=== PATIENT | male | born 1945 | race Caucasian/White ===

== ENCOUNTER 2022-12-29 18:32 | Emergency (ER) | payer MEDICARE, SELFPAY ==
[2022-12-29] VITALS (21 sets, daily range): BP systolic 106–141; BP diastolic 54–65; PULSE 61–75; RESP 16–20; TEMP 36.1–36.4; O2SAT 95–100; BMI 20.7
--- NOTE | 2022-12-29 18:51 | ED.GENADULT ---
HPI - General Adult General Time Seen by Provider: 18:51 Date Seen: 12/29/22 Chief complaint: Weakness Stated complaint: Weakness Time Seen by Provider: 12/29/22 18:39 Source: patient, family and RN notes reviewed Mode of arrival: ambulatory Limitations: no limitations History of Present Illness HPI narrative: Patient is a 77-year-old male presenting to the ED of his own accord with concern of symptoms of dizziness/lightheadedness, weakness feeling of rubbery legs. It is more prominent when he attempts to stand. He states he has had some mild headaches but does not have one now. He states he has had some nausea but does not have it now. There has been no vomiting recently, maybe had an episode when he 1st came home from the hospital. He had 2 right carotid artery stents placed at [facility] on December 06. He notes when he 1st came home from the hospital he had all of these symptoms, the seemed to resolve after a few days but now our back. He does not have focal weakness in his legs, it is more sense of his legs will just feel rubbery. He started noticing symptoms again on his way home from work. Denies any visual change, no chest pain, no shortness of breath. No abdominal pain. No urinary symptoms. No noted fevers or chills. He has a pacemaker, he states it has been there for a long time, thinks maybe summer about 4-5 years. It is also a defibrillator. This is not a spinning sensation. They bring when he came home he had a rash all over his body, his states she almost notice some areas that were like blood blisters. She tells me that they think that this was maybe from the glue that he reacted to. This was after discharge from December 06 hospitalization per report. No current rash now. He does not note any blood in his stool, no dark tarry stools. Related Data Home Medications Medication Instructions Recorded Confirmed alendronate 70 mg tablet 70 mg PO 12/29/22 amlodipine 5 mg tablet 5 mg PO DAILY 12/29/22 12/29/22 atorvastatin 80 mg tablet 80 mg PO DAILY 12/29/22 12/29/22 azithromycin 250 mg tablet 250 mg PO DIRECTED 12/29/22 12/29/22 benzonatate 100 mg capsule 100 mg PO 3XD 12/29/22 12/29/22 clopidogrel 75 mg tablet 75 mg PO DAILY 12/29/22 12/29/22 levothyroxine 112 mcg tablet 112 mcg PO DAILY 12/29/22 12/29/22 levothyroxine 88 mcg tablet 88 mcg PO DAILY 12/29/22 12/29/22 rivaroxaban 20 mg tablet (Xarelto) 20 mg PO DAILY 12/29/22 12/29/22 Allergies Allergy/AdvReac Type Severity Reaction Status Date / Time No Known Drug Allergies Allergy Verified 12/29/22 18:49 Review of Systems Status of ROS: Reports: 10 or more systems reviewed and unremarkable except as noted in History and below Exam Const: Vital Signs, click to edit/add: Vital Signs - 24 hr 12/29/22 18:42 12/29/22 19:11 12/29/22 19:11 Temperature 96.9 F L 97.1 F L Pulse Rate Pulse Rate [Pulse Oximeter] 64 66 Respiratory Rate 16 18 Blood Pressure Blood Pressure [Ri ght Upper Arm] 141/62 H 107/54 L Pulse Oximetry 97 98 99 Oxygen Delivery Me thod Room Air Room Air 12/29/22 18:55 12/29/22 19:00 12/29/22 19:12 Temperature Pulse Rate 64 65 61 Pulse Rate [Pulse Oximeter] Respiratory Rate Blood Pressure 106/54 L Blood Pressure [Ri ght Upper Arm] Pulse Oximetry 97 99 99 Oxygen Delivery Me thod 12/29/22 19:20 12/29/22 19:23 12/29/22 19:25 Temperature Pulse Rate 68 63 75 Pulse Rate [Pulse Oximeter] Respiratory Rate Blood Pressure 107/54 L 107/64 Blood Pressure [Ri ght Upper Arm] Pulse Oximetry 99 98 100 Oxygen Delivery Me thod 12/29/22 19:40 12/29/22 19:45 12/29/22 20:06 Temperature 97.5 F L Pulse Rate 65 62 65 Pulse Rate [Pulse Oximeter] Respiratory Rate 20 Blood Pressure 115/58 L 119/63 Blood Pressure [Ri ght Upper Arm] Pulse Oximetry 99 100 100 Oxygen Delivery Me thod 12/29/22 20:21 Temperature 97.6 F Pulse Rate 62 Pulse Rate [Pulse Oximeter] Respiratory Rate 18 Blood Pressure 111/58 L Blood Pressure [Ri ght Upper Arm] Pulse Oximetry 99 Oxygen Delivery Me thod Documenting provider has reviewed patient's vital signs: yes Common normals: no apparent distress, average body habitus, oriented x3, no limitations, alert and well nourished General appearance: cooperative, comfortable, well kempt, well developed and frail appearing Other: Lying on the bed, holding an emesis bag but states he is not nauseated at the current time. HENMT: Common normals: normocephalic, head/scalp atraumatic, hearing grossly normal bilaterally, external ears normal, external nose normal, nasal mucous membranes and turbinates normal, moist oral mucous membranes, oropharynx normal, dentition normal and gingiva normal Head and scalp: normocephalic and atraumatic Nose: external nose normal and nasal mucous membranes and turbinates normal External ear: external ears normal Eye: Common normals: PERRL, EOMs intact bilaterally, conjunctivae normal and no scleral icterus Conjunctiva: conjunctiva(e) normal Pupil: PERRL Neuro: Common normals: oriented x3 Sensorium/orientation: alert Psych: Appearance: well kempt Course Course Hospital Course: This patient has symptoms that seem to be potentiated by standing, do wonder about orthostatic hypotension. He has no focal neurologic changes on my exam. Infectious etiology are potential. 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 He describes generalize weakness at times. Difficult to say exactly with the etiology could be here but does include infectious and metabolic issues potential respiratory or cardiac. Will do full complement of labs. He will be on cardiac monitoring and pulse oximetry. Will have staff do orthostatic blood pressure and pulse readings. Reevaluation(s) Reevaluation #1: Reviewed with patient that his hemoglobin is quite low at 6. Nursing staff was starting to do his orthostatic vitals and he just sitting up had a BP of 107/54 (last lying BP was 141/62). Will attempt to talk to [facility], don't feel that he is a candidate to stay here with question of his anti-platelet and NOAC, will likely need neurology and cardiology to weigh his risk/benefit ratio with new documented hemoglobin of 6. Will also likely need GI with scopes, do not have emergent coverage for this. Have lab doing type and screen for preparation of transfusion while we await consultation. Will give IV protonix. Time: 19:28 Consultations Consultation #1: Have spoken with both Dr. Mancini the primer expeditor and drier as well as the hospitalist Dr. Smith. Both agree on need for transfer. Did review with the hospitalist that I was going started unit of O-negative blood as we could do this expeditiously here. Type specific blood would not likely be given in the time frame prior to transfer. He did agree with this. Patient is also noted to be on aspirin which is not on his med rec but was found out talking to these gentleman. Thus he is on triple therapy. He does not appear to have active bleeding anywhere at this time but he will continue to be monitored, will update the hospitalist if there is any change or concerns with his status. Vital Signs Vital signs: Initial Vital Signs Temperature 96.9 F L 12/29/22 18:42 Temperature Source Temporal Artery Scan 12/29/22 18:42 Pulse Rate 64 12/29/22 18:42 Pulse Rhythm Regular 12/29/22 18:42 Respiratory Rate 16 12/29/22 18:42 Blood Pressure 141/62 H 12/29/22 18:42 Blood Pressure Mean 88 12/29/22 18:42 Blood Pressure Position Supine 12/29/22 18:42 Pulse Oximetry 97 12/29/22 18:42 Oxygen Delivery Method Room Air 12/29/22 18:42 Vital Signs Temperature 96.9 F L 12/29/22 18:42 Pulse Rate 64 12/29/22 18:42 Respiratory Rate 16 12/29/22 18:42 Blood Pressure 141/62 H 12/29/22 18:42 Pulse Oximetry 97 12/29/22 18:42 Oxygen Delivery Method Room Air 12/29/22 18:42 Temperature 97.6 F 12/29/22 20:21 Pulse Rate 65 12/29/22 20:41 Respiratory Rate 18 12/29/22 20:21 Blood Pressure 123/64 12/29/22 20:41 Pulse Oximetry 99 12/29/22 20:41 Oxygen Delivery Method Room Air 12/29/22 19:11 Medical Decision Making Lab Data Lab results reviewed: Yes I reviewed the patient's lab results Labs: Lab Results 12/29/22 12/29/22 12/29/22 Range/Units 18:45 18:45 18:45 WBC 10.37 (4.50-11.00) K/uL RBC 1.99 L (4.30-5.90) m/uL Hgb 6.0 L* (13.5-17.5) gm/dL Hct 18.8 L (37.0-53.0) % MCV 95 (80-100) fL MCH 30 (26-34) pg MCHC 32 (32-36) gm/dL RDW Coeff of Hannah 18.7 H (11.5-15.5) % Plt Count 280 (140-440) K/uL Neut % (Auto) 70.3 (42.0-72.0) % Lymph % (Auto) 19.9 L (20-44) % [place] % (Auto) 7.1 (0.0-11.0) % Eos % (Auto) 2.0 (0.0-7.0) % Baso % (Auto) 0.2 (0.0-3.0) % Neut # (Auto) 7.29 H (1.7-7.0) K/uL Lymph # (Auto) 2.10 (0.90-2.90) K/uL [place] # (Auto) 0.70 (0.00-0.90) K/UL Eos # (Auto) 0.21 (0.00-0.50) K/uL Baso # (Auto) 0.02 (0.00-0.30) K/uL Diff Slide Review Acceptable Review (Acceptable) ESR 8 (2-15) mm/hr Sodium Cancelled 134 L Potassium Cancelled 4.2 Chloride Cancelled Carbon Dioxide BUN Creatinine Estimated Creat Clear Estimated GFR Glucose Lactate (0.5-1.9) mmol/L Calcium Magnesium (1.5-2.6) mg/dL Total Bilirubin AST ALT Alkaline Phosphatase Troponin I (0.01-0.04) ng/mL C-Reactive Protein NT-Pro-B Natriuret Pep pg/mL Total Protein Albumin SARS-CoV-2 (PCR) (Negative) Influenza Type A (PCR) (Negative) Influenza Type B (PCR) (Negative) RSV (PCR) (Negative) Blood Type Antibody Screen Crossmatch (AHG) 12/29/22 12/29/22 12/29/22 Range/Units 18:45 18:45 18:45 WBC (4.50-11.00) K/uL RBC (4.30-5.90) m/uL Hgb (13.5-17.5) gm/dL Hct (37.0-53.0) % MCV (80-100) fL MCH (26-34) pg MCHC (32-36) gm/dL RDW Coeff of Hannah (11.5-15.5) % Plt Count (140-440) K/uL Neut % (Auto) (42.0-72.0) % Lymph % (Auto) (20-44) % [place] % (Auto) (0.0-11.0) % Eos % (Auto) (0.0-7.0) % Baso % (Auto) (0.0-3.0) % Neut # (Auto) (1.7-7.0) K/uL Lymph # (Auto) (0.90-2.90) K/uL [place] # (Auto) (0.00-0.90) K/UL Eos # (Auto) (0.00-0.50) K/uL Baso # (Auto) (0.00-0.30) K/uL Diff Slide Review (Acceptable) ESR (2-15) mm/hr Sodium Potassium Chloride 105 Carbon Dioxide Cancelled 25 BUN Cancelled 30 Creatinine Cancelled Estimated Creat Clear Estimated GFR Glucose Lactate (0.5-1.9) mmol/L Calcium Magnesium (1.5-2.6) mg/dL Total Bilirubin AST ALT Alkaline Phosphatase Troponin I (0.01-0.04) ng/mL C-Reactive Protein NT-Pro-B Natriuret Pep pg/mL Total Protein Albumin SARS-CoV-2 (PCR) (Negative) Influenza Type A (PCR) (Negative) Influenza Type B (PCR) (Negative) RSV (PCR) (Negative) Blood Type Antibody Screen Crossmatch (AHG) 12/29/22 12/29/22 12/29/22 Range/Units 18:45 18:45 18:45 WBC (4.50-11.00) K/uL RBC (4.30-5.90) m/uL Hgb (13.5-17.5) gm/dL Hct (37.0-53.0) % MCV (80-100) fL MCH (26-34) pg MCHC (32-36) gm/dL RDW Coeff of Hannah (11.5-15.5) % Plt Count (140-440) K/uL Neut % (Auto) (42.0-72.0) % Lymph % (Auto) (20-44) % [place] % (Auto) (0.0-11.0) % Eos % (Auto) (0.0-7.0) % Baso % (Auto) (0.0-3.0) % Neut # (Auto) (1.7-7.0) K/uL Lymph # (Auto) (0.90-2.90) K/uL [place] # (Auto) (0.00-0.90) K/UL Eos # (Auto) (0.00-0.50) K/uL Baso # (Auto) (0.00-0.30) K/uL Diff Slide Review (Acceptable) ESR (2-15) mm/hr Sodium Potassium Chloride Carbon Dioxide BUN Creatinine 0.9 Estimated Creat Clear Cancelled 58.06 Estimated GFR Cancelled 89 Glucose Cancelled Lactate (0.5-1.9) mmol/L Calcium Magnesium (1.5-2.6) mg/dL Total Bilirubin AST ALT Alkaline Phosphatase Troponin I (0.01-0.04) ng/mL C-Reactive Protein NT-Pro-B Natriuret Pep pg/mL Total Protein Albumin SARS-CoV-2 (PCR) (Negative) Influenza Type A (PCR) (Negative) Influenza Type B (PCR) (Negative) RSV (PCR) (Negative) Blood Type Antibody Screen Crossmatch (AHG) 12/29/22 12/29/22 12/29/22 Range/Units 18:45 18:45 18:45 WBC (4.50-11.00) K/uL RBC (4.30-5.90) m/uL Hgb (13.5-17.5) gm/dL Hct (37.0-53.0) % MCV (80-100) fL MCH (26-34) pg MCHC (32-36) gm/dL RDW Coeff of Hannah (11.5-15.5) % Plt Count (140-440) K/uL Neut % (Auto) (42.0-72.0) % Lymph % (Auto) (20-44) % [place] % (Auto) (0.0-11.0) % Eos % (Auto) (0.0-7.0) % Baso % (Auto) (0.0-3.0) % Neut # (Auto) (1.7-7.0) K/uL Lymph # (Auto) (0.90-2.90) K/uL [place] # (Auto) (0.00-0.90) K/UL Eos # (Auto) (0.00-0.50) K/uL Baso # (Auto) (0.00-0.30) K/uL Diff Slide Review (Acceptable) ESR (2-15) mm/hr Sodium Potassium Chloride Carbon Dioxide BUN Creatinine Estimated Creat Clear Estimated GFR Glucose 110 Lactate 1.1 (0.5-1.9) mmol/L Calcium Cancelled 7.9 L Magnesium 1.7 (1.5-2.6) mg/dL Total Bilirubin Cancelled 0.2 AST Cancelled ALT Alkaline Phosphatase Troponin I (0.01-0.04) ng/mL C-Reactive Protein NT-Pro-B Natriuret Pep pg/mL Total Protein Albumin SARS-CoV-2 (PCR) (Negative) Influenza Type A (PCR) (Negative) Influenza Type B (PCR) (Negative) RSV (PCR) (Negative) Blood Type Antibody Screen Crossmatch (AHG) 12/29/22 12/29/22 12/29/22 Range/Units 18:45 18:45 18:45 WBC (4.50-11.00) K/uL RBC (4.30-5.90) m/uL Hgb (13.5-17.5) gm/dL Hct (37.0-53.0) % MCV (80-100) fL MCH (26-34) pg MCHC (32-36) gm/dL RDW Coeff of Hannah (11.5-15.5) % Plt Count (140-440) K/uL Neut % (Auto) (42.0-72.0) % Lymph % (Auto) (20-44) % [place] % (Auto) (0.0-11.0) % Eos % (Auto) (0.0-7.0) % Baso % (Auto) (0.0-3.0) % Neut # (Auto) (1.7-7.0) K/uL Lymph # (Auto) (0.90-2.90) K/uL [place] # (Auto) (0.00-0.90) K/UL Eos # (Auto) (0.00-0.50) K/uL Baso # (Auto) (0.00-0.30) K/uL Diff Slide Review (Acceptable) ESR (2-15) mm/hr Sodium Potassium Chloride Carbon Dioxide BUN Creatinine Estimated Creat Clear Estimated GFR Glucose Lactate (0.5-1.9) mmol/L Calcium Magnesium (1.5-2.6) mg/dL Total Bilirubin AST 26 ALT Cancelled 21 Alkaline Phosphatase Cancelled 48 Troponin I 0.09 H* (0.01-0.04) ng/mL C-Reactive Protein Cancelled NT-Pro-B Natriuret Pep pg/mL Total Protein Albumin SARS-CoV-2 (PCR) (Negative) Influenza Type A (PCR) (Negative) Influenza Type B (PCR) (Negative) RSV (PCR) (Negative) Blood Type Antibody Screen Crossmatch (AHG) 12/29/22 12/29/22 12/29/22 Range/Units 18:45 18:45 18:45 WBC (4.50-11.00) K/uL RBC (4.30-5.90) m/uL Hgb (13.5-17.5) gm/dL Hct (37.0-53.0) % MCV (80-100) fL MCH (26-34) pg MCHC (32-36) gm/dL RDW Coeff of Hannah (11.5-15.5) % Plt Count (140-440) K/uL Neut % (Auto) (42.0-72.0) % Lymph % (Auto) (20-44) % [place] % (Auto) (0.0-11.0) % Eos % (Auto) (0.0-7.0) % Baso % (Auto) (0.0-3.0) % Neut # (Auto) (1.7-7.0) K/uL Lymph # (Auto) (0.90-2.90) K/uL [place] # (Auto) (0.00-0.90) K/UL Eos # (Auto) (0.00-0.50) K/uL Baso # (Auto) (0.00-0.30) K/uL Diff Slide Review (Acceptable) ESR (2-15) mm/hr Sodium Potassium Chloride Carbon Dioxide BUN Creatinine Estimated Creat Clear Estimated GFR Glucose Lactate (0.5-1.9) mmol/L Calcium Magnesium (1.5-2.6) mg/dL Total Bilirubin AST ALT Alkaline Phosphatase Troponin I (0.01-0.04) ng/mL C-Reactive Protein 0.5 NT-Pro-B Natriuret Pep 983 pg/mL Total Protein Cancelled 5.9 L Albumin Cancelled 3.4 SARS-CoV-2 (PCR) (Negative) Influenza Type A (PCR) (Negative) Influenza Type B (PCR) (Negative) RSV (PCR) (Negative) Blood Type Antibody Screen Crossmatch (AHG) 12/29/22 12/29/22 Range/Units 19:08 19:30 WBC (4.50-11.00) K/uL RBC (4.30-5.90) m/uL Hgb (13.5-17.5) gm/dL Hct (37.0-53.0) % MCV (80-100) fL MCH (26-34) pg MCHC (32-36) gm/dL RDW Coeff of Hannah (11.5-15.5) % Plt Count (140-440) K/uL Neut % (Auto) (42.0-72.0) % Lymph % (Auto) (20-44) % [place] % (Auto) (0.0-11.0) % Eos % (Auto) (0.0-7.0) % Baso % (Auto) (0.0-3.0) % Neut # (Auto) (1.7-7.0) K/uL Lymph # (Auto) (0.90-2.90) K/uL [place] # (Auto) (0.00-0.90) K/UL Eos # (Auto) (0.00-0.50) K/uL Baso # (Auto) (0.00-0.30) K/uL Diff Slide Review (Acceptable) ESR (2-15) mm/hr Sodium Potassium Chloride Carbon Dioxide BUN Creatinine Estimated Creat Clear Estimated GFR Glucose Lactate (0.5-1.9) mmol/L Calcium Magnesium (1.5-2.6) mg/dL Total Bilirubin AST ALT Alkaline Phosphatase Troponin I (0.01-0.04) ng/mL C-Reactive Protein NT-Pro-B Natriuret Pep pg/mL Total Protein Albumin SARS-CoV-2 (PCR) Negative SARS-CoV-2 (Negative) Influenza Type A (PCR) Negative PCR FLU A (Negative) Influenza Type B (PCR) Negative PCR FLU B (Negative) RSV (PCR) Negative PCR RSV (Negative) Blood Type A Positive Antibody Screen NEGATIVE Crossmatch (AHG) See Detail Imaging Data Chest x-ray: Attestation: I have reviewed the pertinent imaging results. Radiologist's impression: Patient: LIGIA MAY Facility:?[facility] Patient ID:?[id number] Site Patient ID:?[id number]. Site :?[id number] Study:?XRay Chest portable 1v-12/29/2022 7:22:36 PM Ordering Physician:Consuelo Hanson Final Report: INDICATION: Weakness TECHNIQUE: Single view chest. FINDINGS: The lungs are clear. The heart, mediastinum and pulmonary vessels are of normal size. There is no evidence of pleural disease. Median sternotomy. Left cardiac pacer. IMPRESSION: Negative chest. Dictated by Nancy Tinajero MD @ 12/29/2022 7:31:57 PM (Electronic Signature) ECG Data Attestation: I personally reviewed and interpreted this ECG as follows: (Sinus rhythm, 69 beats per minute strain pattern that appears to be similar to prior EKG in 2016. EKG machine is calling [id number] but I honestly do not see the EKG evidence of this. Patient has a known pacemaker but do not see pacer spikes.) Prior ECG tracings: available for review (Two thousand sixteen, was in atrial fibrillation with RVR and had similar complexes.) Critical Care Time Critical Care Time Critical Care Time: Yes Attestation: The patient required my highest level preparedness to intervene emergently and I personally spent this critical care time directly and personally managing the patient. This critical care time included: Obtaining a history; Examining the patient; Pulse oximetry; Ordering and reviewing of studies; Arranging urgent treatment with development of a management plan; Evaluation of patients response to treatment; Frequent reassessment discussions with other providers. This critical care time was performed to assess and manage the high probability of imminent life-threatening deterioration that could result in multiorgan failure. It was exclusive of separate billable procedures and treating other patients and teaching time. Total Critical Care Time in Minutes: 40 Discharge Plan Discharge Clinical Impression: Dizziness, Chronic anticoagulation, Elevated troponin, Weakness, Acute blood loss anemia Patient Disposition: Xfer [facility] Discharge Location: [facility] Condition: Unchanged Prescriptions: No Action atorvastatin 80 mg tablet 80 mg PO DAILY azithromycin 250 mg tablet 250 mg PO DIRECTED alendronate 70 mg tablet 70 mg PO clopidogrel 75 mg tablet 75 mg PO DAILY amlodipine 5 mg tablet 5 mg PO DAILY levothyroxine 88 mcg tablet 88 mcg PO DAILY benzonatate 100 mg capsule 100 mg PO 3XD levothyroxine 112 mcg tablet 112 mcg PO DAILY Xarelto 20 mg tablet 20 mg PO DAILY Stand Alone Forms: [employer] Info Instructions
--- NOTE | 2022-12-29 18:58 | CRLHL7_ITS ---
For Patients: As a result of the Century Cures Act, medical imaging exams and procedure reports are released immediately into your electronic medical record. You may view this report before your referring provider. If you have questions, please contact your health care provider. INDICATION: Weakness TECHNIQUE: Single view chest. FINDINGS: The lungs are clear. The heart, mediastinum and pulmonary vessels are of normal size. There is no evidence of pleural disease. Median sternotomy. Left cardiac pacer. IMPRESSION: Negative chest. Dictated by Nancy Tinajero MD @ 12/29/2022 7:31:57 PM (Electronically Signed)
[2022-12-29 19:11] LABS: Lactate* 1.1 mmol/L (0.5-1.9)
[2022-12-29 19:15] LABS: Basophils Absolute Auto 0.02 K/uL (0.00-0.30); Basophils Percent Auto 0.2 % (0.0-3.0); Eosinophils Absolute Auto 0.21 K/uL (0.00-0.50); Hematocrit 18.8 % (37.0-53.0); Immature Granulocytes Abs Auto 0.05 K/uL (0.00-0.30); Immature Granulocytes Pct Auto 0.5 %; Lymphocytes Percent Auto 19.9 % (20-44); Mean Corpuscular HGB Conc 32 gm/dL (32-36); Mean Corpuscular Hemoglobin 30 pg (26-34); Mean Corpuscular Volume 95 fL (80-100); Monocytes Percent Auto 7.1 % (0.0-11.0); Neutrophils Absolute Auto 7.29 K/uL (1.7-7.0); Neutrophils Percent Auto 70.3 % (42.0-72.0); Platelet Count* 280 K/uL (140-440); RDW Coefficient of Variation % 18.7 % (11.5-15.5); Red Blood Count 1.99 m/uL (4.30-5.90); White Blood Count* 10.37 K/uL (4.50-11.00)
[2022-12-29 19:17] LABS: Slide Review Reflex Yes
[2022-12-29 19:26] LABS: Albumin* 3.4 g/dL (3.3-5.0); Chloride* 105 mmol/L (96-114); Potassium* 4.2 mmol/L (3.6-5.1); Sodium* 134 mmol/L (135-149)
[2022-12-29 19:29] LABS: Alanine Aminotransferase* 21 U/L (4-50); Alkaline Phosphatase* 48 U/L (40-150); Aspartate Amino Transferase* 26 U/L (12-35); Bilirubin Total* 0.2 mg/dL (0.1-1.5); Blood Urea Nitrogen* 30 mg/dL (7-30); Carbon Dioxide* 25 mmol/L (20-32); Creatinine* 0.9 mg/dL (0.5-1.5); Est. Creatinine Clearance* 58.06; Estimated Glomerular Filt Rate 89 ml/min; Glucose* 110 mg/dL (60-115); Slide Review Acceptable Review (Acceptable); Total Protein* 5.9 g/dL (6.0-8.3)
[2022-12-29 19:30] LABS: Calcium* 7.9 mg/dL (8.4-10.6); Magnesium* 1.7 mg/dL (1.5-2.6)
[2022-12-29 19:32] LABS: C Reactive Protein* 0.5 mg/dL (0.5-1.0)
[2022-12-29] MEDS: 0.9 % SODIUM CHLORIDE 1000 ml 1,000 ML 500 ML IV (19:33)
[2022-12-29 19:45] LABS: NT Pro B Type NatriureticPept* 983 pg/mL; Troponin I* 0.09 ng/mL (0.01-0.04)
[2022-12-29 19:52] LABS: PCR FLU A Negative PCR FLU A (Negative); PCR FLU B Negative PCR FLU B (Negative); PCR RSV Negative PCR RSV (Negative)
[2022-12-29 19:58] LABS: SARS PCR* Negative SARS-CoV-2 (Negative)
[2022-12-29 20:01] LABS: Erythrocyte SedimentationRate* 8 mm/hr (2-15)
--- NOTE | 2022-12-29 21:08 | PC.NURSE ---
report given to Akila VIERA at [facility], patient to go to room E4000 room 4062. patient left via EMS blood infusing.
--- NOTE | 2022-12-29 21:09 | PC.NURSE ---
blood finished en route with EMS
[2023-01-29 13:49] LABS: Troponin, Point-of-Care* 0.09 ng/ml (0.01-0.04)
== END 2022-12-29 21:11 | disposition short-term general hospital (02) ==
PROVIDERS: Emergency Provider Family Medicine; PCP Family Medicine
DX: R53.1 Weakness (principal); D62 Acute posthemorrhagic anemia; Z79.01 Long term (current) use of anticoagulants; R42 Dizziness and giddiness
CPT/HCPCS: 36415; 71045; 80053; 81001; 83605; 83735; 83880; 84484; 85025; 85651; 86140; 86850; 86900; 86901; 86922; 87631; 93005; 94761; 99285; 99291; J7030; P9016

== ENCOUNTER 2022-12-29 20:56 | Outpatient (CLI) | payer MEDICARE, SELFPAY | END 2022-12-29 20:57 | disposition home or self-care (01) | LOC: AMB 01-01 11:21 | PROVIDERS: PCP Family Medicine; Visit Provider Family Medicine | DX: R42 Dizziness and giddiness (principal) | CPT/HCPCS: A0425; A0426; A0427 ==

== ENCOUNTER 2023-05-20 15:28 | Observation (INO) | payer MEDICARE, SELFPAY ==
[2023-05-20] VITALS (30 sets, daily range): BP systolic 95–155; BP diastolic 65–77; PULSE 54–67; RESP 16–18; TEMP 36.3–36.8; O2SAT 94–99; BMI 21.5
--- NOTE | 2023-05-20 16:24 | ED.GENADULT ---
HPI - General Adult General Chief complaint: GI Bleed Stated complaint: Blood in stool Time Seen by Provider: 05/20/23 16:23 History of Present Illness HPI narrative: c/o blood in stool for over a week. happens everytime he has bm. last bm today. denies diarrhea . denies pain. c/o occas lightheaded. pt here 3-4 months ago with the same thing . at that time sent to [facility] , states bleeding in intestines. suppose to have another colonoscopy soon. 77 year old man presenting to the ER with complaint of rectal bleeding. More specifically dark stools over the last 3 days maybe actually a week when he thinks about it. He has been little more lightheaded especially when he goes to stand up. He says he did want a wait as long as last time. Underlying history of significant cardiovascular disease with a history of a number of cardiac stents and history of pacer defibrillator placement. He continues to take aspirin, clopidogrel and rivaroxaban. He is not feeling short of breath. No chest pain. January 28 he was seen in this department with hematochezia with a hemoglobin of 6 and sent to [email or web address] where colonoscopy apparently revealed what looks like an AVM where 2 hemoclips were placed. This was actively bleeding/oozing at that time. Was recommended per my report view to follow-up in 6 months for colonoscopy with polypectomy. He does take a beta-florecita. Is not having abdominal pain. Related Data Home Medications Medication Instructions Recorded Confirmed alendronate 70 mg tablet 70 mg PO Q7D 12/29/22 05/21/23 levothyroxine 112 mcg tablet 112 mcg PO DAILY 12/29/22 05/21/23 rivaroxaban 20 mg tablet (Xarelto) 20 mg PO QPM 12/29/22 05/21/23 aspirin 81 mg tablet,delayed 81 mg PO DAILY 05/20/23 05/20/23 release (Adult Aspirin Regimen) carvedilol 25 mg tablet 25 mg PO BID 05/20/23 05/20/23 rosuvastatin 40 mg tablet 40 mg PO DAILY 05/20/23 05/20/23 acetaminophen 325 mg tablet 650 mg PO TID PRN 05/21/23 05/21/23 cholecalciferol (vitamin D3) 25 50 mcg PO DAILY 05/21/23 05/21/23 mcg (1,000 unit) tablet diphenhydramine HCl 25 mg tablet 25 mg PO QHS PRN 05/21/23 05/21/23 (Allergy Medicine) loratadine 10 mg tablet 10 mg PO DAILY PRN 05/21/23 05/21/23 (Allerclear) Allergies Allergy/AdvReac Type Severity Reaction Status Date / Time No Known Drug Allergies Allergy Verified 12/29/22 18:49 Review of Systems Status of ROS: Reports: 6 or more systems reviewed and unremarkable except as noted in History and below [facility] Medical History (Updated 05/21/23 @ 15:20 by Carol Ann Nichols MD) Chronic anticoagulation ?Z79.01 - terminal gauger supervisor (current) use of anticoagulants (ICD-10) ICD (implantable cardioverter-defibrillator) in place ?Z95.810 - Presence of automatic (implantable) cardiac defibrillator (ICD-10) History of right common carotid artery stent placement ?Z98.890 - Other specified postprocedural states (ICD-10) ?Z95.828 - Presence of other vascular implants and grafts (ICD-10) COVID-19 ?U07.1 - COVID-19 (ICD-10) Chronic cough ?R05.3 - Chronic cough (ICD-10) Osteoporosis ?M81.0 - Age-related osteoporosis without current pathological fracture (ICD-10) NSTEMI (non-ST elevation myocardial infarction) ?I21.4 - Non-ST elevation (NSTEMI) myocardial infarction (ICD-10) Carotid atherosclerosis ?I65.29 - Occlusion and stenosis of unspecified carotid artery (ICD-10) Myocardial infarction of anterior wall ?I21.09 - ST elevation (STEMI) myocardial infarction involving other coronary artery of anterior wall (ICD-10) Chronic HFrEF (heart failure with reduced ejection fraction) ?I50.22 - Chronic systolic (congestive) heart failure (ICD-10) Primary hypothyroidism ?E03.9 - Hypothyroidism, unspecified (ICD-10) Spinal stenosis, lumbar ?M48.061 - Spinal stenosis, lumbar region without neurogenic claudication (ICD-10) Essential hypertension ?I10 - Essential (primary) hypertension (ICD-10) PVD (peripheral vascular disease) ?I73.9 - Peripheral vascular disease, unspecified (ICD-10) Paroxysmal atrial fibrillation ?I48.0 - Paroxysmal atrial fibrillation (ICD-10) Mixed hyperlipidemia ?E78.2 - Mixed hyperlipidemia (ICD-10) Coronary artery disease ?I25.10 - Atherosclerotic heart disease of king [place] coronary artery without angina pectoris (ICD-10) History of anemia ?Z86.2 - Personal history of diseases of the blood and blood-forming organs and certain disorders involving the immune mechanism (ICD-10) AVM (arteriovenous malformation) of colon with hemorrhage ?K55.21 - Angiodysplasia of colon with hemorrhage (ICD-10) History of gastrointestinal hemorrhage ?Z87.19 - Personal history of other diseases of the digestive system (ICD-10) Alcohol use disorder ?F10.90 - Alcohol use, unspecified, uncomplicated (ICD-10) Tobacco dependence with current use ?F17.200 - Nicotine dependence, unspecified, uncomplicated (ICD-10) Surgical History (Updated 05/20/23 @ 20:33 by Pérez Huerta MD) H/O varicose vein stripping ?Z98.890 - Other specified postprocedural states (ICD-10) Status post lumbar laminectomy ?Z98.890 - Other specified postprocedural states (ICD-10) H/O hernia repair ?Z98.890 - Other specified postprocedural states (ICD-10) ?Z87.19 - Personal history of other diseases of the digestive system (ICD-10) History of coronary artery stent placement ?Z95.5 - Presence of coronary angioplasty implant and graft (ICD-10) S/P CABG x 3 ?Z95.1 - Presence of aortocoronary bypass graft (ICD-10) Family History (Updated 05/20/23 @ 21:20 by Pérez Huerta MD) Brother Heart disease Social History (Updated 05/20/23 @ 21:19 by Pérez Huerta MD) Narrative: . Lives with . Still working in industrial manufacturing. Continues to smoke 1 pack cigarettes daily, with greater than 50 pack-year history of smoking. Drinks minimum of 2 alcoholic beverages in the evening on a daily basis. Denies alcohol withdrawal. 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 Requests full resuscitation in the event of cardiopulmonary demise. Primary care physician is Dr. Cross. What is your current living situation?: I presently have a place to live Problems where you live: no known problems Problems where you live details: None In the past 12 months, utilities in danger of being shut off: no In the past 12 mos, have been you worried that your food would run out before you had money to buy more?: never true In the past 12 mos, the food you bought just didn't last and you didn't have money to buy more?: never true Highest level of school completed/degree received: Associate degree: occupational, technical, vocational program Smoking Status: Unknown if ever smoked How often do you have a drink containing alcohol: 4 or more times a week Alcohol type: beer How many standard drinks containing alcohol do you have on a typical day: 3 or 4 How often do you have six or more drinks on one occasion: Less than monthly AUDIT-C Alcohol total score: 6 Non-prescribed substance use: denies use Caffeine: No How often does anyone, including family, friends and others, physically hurt you: never How often does anyone, including family, friends and others, insult or talk down to you: never How often does anyone, including family, friends and others, threaten you with harm: never How often does anyone, including family, friends and others, scream or curse at you: never Exam Narrative: Exam Narrative: Very. NAD. Skin is warm and dry. Quite alert interactive. Extremities are without edema. Abdomen is soft and nontender with normoactive bowel sounds. He has large surgical midline abdominal scar. Lungs are clear. Heart is in a regular rate and rhythm. He will however throw intermittent irregular beats which look to be consistent with PVCs when I am watching on monitor. Const: Vital Signs, click to edit/add: Vital Signs - 24 hr 05/20/23 15:39 05/20/23 16:13 05/20/23 16:14 Temperature 97.3 F L Pulse Rate 59 L 54 L Pulse Rate [Pulse Oximeter] 67 Pulse Rate [orthos tatic lying] Pulse Rate [orthos tatic sitting] Pulse Rate [orthos tatic standing] Respiratory Rate 18 Blood Pressure 127/70 Blood Pressure [Ri ght Upper Arm] 144/74 H Blood Pressure [or thostatic lying] Blood Pressure [or thostatic sitting] Blood Pressure [or thostatic standing ] Pulse Oximetry 99 96 96 Oxygen Delivery Me thod Room Air 05/20/23 16:15 05/20/23 16:30 05/20/23 16:33 Temperature Pulse Rate 61 66 63 Pulse Rate [Pulse Oximeter] Pulse Rate [orthos tatic lying] Pulse Rate [orthos tatic sitting] Pulse Rate [orthos tatic standing] Respiratory Rate Blood Pressure 150/77 H Blood Pressure [Ri ght Upper Arm] Blood Pressure [or thostatic lying] Blood Pressure [or thostatic sitting] Blood Pressure [or thostatic standing ] Pulse Oximetry 96 95 97 Oxygen Delivery Ms thod 05/20/23 16:45 05/20/23 17:00 05/20/23 17:02 Temperature Pulse Rate 62 59 L 59 L Pulse Rate [Pulse Oximeter] Pulse Rate [orthos tatic lying] Pulse Rate [orthos tatic sitting] Pulse Rate [orthos tatic standing] Respiratory Rate Blood Pressure 132/73 Blood Pressure [Ri ght Upper Arm] Blood Pressure [or thostatic lying] Blood Pressure [or thostatic sitting] Blood Pressure [or thostatic standing ] Pulse Oximetry 95 98 95 Oxygen Delivery Ms thod 05/20/23 17:03 05/20/23 17:15 05/20/23 17:30 Temperature Pulse Rate 59 L 61 61 Pulse Rate [Pulse Oximeter] Pulse Rate [orthos tatic lying] Pulse Rate [orthos tatic sitting] Pulse Rate [orthos tatic standing] Respiratory Rate Blood Pressure Blood Pressure [Ri ght Upper Arm] Blood Pressure [or thostatic lying] Blood Pressure [or thostatic sitting] Blood Pressure [or thostatic standing ] Pulse Oximetry 95 95 96 Oxygen Delivery Ms thod 05/20/23 17:32 05/20/23 17:33 05/20/23 17:35 Temperature Pulse Rate 63 61 62 Pulse Rate [Pulse Oximeter] Pulse Rate [orthos tatic lying] Pulse Rate [orthos tatic sitting] Pulse Rate [orthos tatic standing] Respiratory Rate Blood Pressure 139/77 118/74 95/65 Blood Pressure [Ri ght Upper Arm] Blood Pressure [or thostatic lying] Blood Pressure [or thostatic sitting] Blood Pressure [or thostatic standing ] Pulse Oximetry 96 97 96 Oxygen Delivery Ms thod 05/20/23 17:36 05/20/23 17:37 05/20/23 17:45 Temperature Pulse Rate 62 62 Pulse Rate [Pulse Oximeter] Pulse Rate [orthos tatic lying] 59 L Pulse Rate [orthos tatic sitting] 62 Pulse Rate [orthos tatic standing] 60 Respiratory Rate Blood Pressure Blood Pressure [Ri ght Upper Arm] Blood Pressure [or thostatic lying] 139/77 Blood Pressure [or thostatic sitting] 118/74 Blood Pressure [or thostatic standing ] 95/65 Pulse Oximetry 97 96 Oxygen Delivery Me thod 05/20/23 18:00 05/20/23 18:02 05/20/23 18:15 Temperature Pulse Rate 64 59 L 63 Pulse Rate [Pulse Oximeter] Pulse Rate [orthos tatic lying] Pulse Rate [orthos tatic sitting] Pulse Rate [orthos tatic standing] Respiratory Rate Blood Pressure 128/73 Blood Pressure [Ri ght Upper Arm] Blood Pressure [or thostatic lying] Blood Pressure [or thostatic sitting] Blood Pressure [or thostatic standing ] Pulse Oximetry 97 94 96 Oxygen Delivery Me thod 05/20/23 18:30 05/20/23 18:31 05/20/23 18:45 Temperature Pulse Rate 60 54 L 57 L Pulse Rate [Pulse Oximeter] Pulse Rate [orthos tatic lying] Pulse Rate [orthos tatic sitting] Pulse Rate [orthos tatic standing] Respiratory Rate Blood Pressure 134/76 Blood Pressure [Ri ght Upper Arm] Blood Pressure [or thostatic lying] Blood Pressure [or thostatic sitting] Blood Pressure [or thostatic standing ] Pulse Oximetry 97 96 95 Oxygen Delivery Ms thod 05/20/23 19:04 Temperature Pulse Rate 61 Pulse Rate [Pulse Oximeter] Pulse Rate [orthos tatic lying] Pulse Rate [orthos tatic sitting] Pulse Rate [orthos tatic standing] Respiratory Rate Blood Pressure Blood Pressure [Ri ght Upper Arm] Blood Pressure [or thostatic lying] Blood Pressure [or thostatic sitting] Blood Pressure [or thostatic standing ] Pulse Oximetry 98 Oxygen Delivery Me thod Documenting provider has reviewed patient's vital signs: yes Course Vital Signs Vital signs: Initial Vital Signs Temperature 97.3 F L 05/20/23 15:39 Temperature Source Temporal Artery Scan 05/20/23 15:39 Pulse Rate 67 05/20/23 15:39 Respiratory Rate 18 05/20/23 15:39 Blood Pressure 144/74 H 05/20/23 15:39 Blood Pressure Mean 97 05/20/23 15:39 Blood Pressure Position Sitting 05/20/23 15:39 Pulse Oximetry 99 05/20/23 15:39 Oxygen Delivery Method Room Air 05/20/23 15:39 Vital Signs Temperature 97.3 F L 05/20/23 15:39 Pulse Rate 67 05/20/23 15:39 Respiratory Rate 18 05/20/23 15:39 Blood Pressure 144/74 H 05/20/23 15:39 Pulse Oximetry 99 05/20/23 15:39 Oxygen Delivery Method Room Air 05/20/23 15:39 Temperature 97.6 F 05/21/23 13:30 Pulse Rate 49 L 05/21/23 13:30 Respiratory Rate 14 05/21/23 13:30 Blood Pressure 150/83 H 05/21/23 13:30 Pulse Oximetry 97 05/21/23 13:30 Oxygen Delivery Method Room Air 05/21/23 13:30 Medical Decision Making MDM Narrative Medical decision making narrative: Placed on athletic monitor. Will be rechecking labs. Given the symptomatic at least orthostaticly will check these and give a bolus of fluids. Seems to be describing GI bleed with description of melanotic stools. Initial hemoglobin is 9.2 with hematocrit 27. Per my review of record on 01/29/2023 hemoglobin is 12.6 With this hemoglobin drop will need another colonoscopy. I have not done a stool Hemoccult. Considering anticoagulation and cardiovascular status, did discuss potential cares here with our general surgeon. Encouraged toward care at a tertiary facility if possible. Did call to [facility] as well as other facilities. There are either no beds, on divert status or no timely accommodations to be found. Did discuss with our hospitalist who is thankfully accepting for admission. Lab Data Lab results reviewed: Yes I reviewed the patient's lab results Labs: Lab Results 05/20/23 Range/Units 16:35 WBC 6.72 (4.50-11.00) K/uL RBC 3.27 L (4.30-5.90) m/uL Hgb 9.2 L (13.5-17.5) gm/dL Hct 27.3 L (37.0-53.0) % MCV 84 (80-100) fL MCH 28 (26-34) pg MCHC 34 (32-36) gm/dL RDW Coeff of Hannah 18.2 H (11.5-15.5) % Plt Count 233 (140-440) K/uL Neut % (Auto) 60.3 (42.0-72.0) % Lymph % (Auto) 28.7 (20-44) % Long % (Auto) 7.7 (0.0-11.0) % Eos % (Auto) 2.2 (0.0-7.0) % Baso % (Auto) 0.4 (0.0-3.0) % Neut # (Auto) 4.04 (1.7-7.0) K/uL Lymph # (Auto) 1.93 (0.90-2.90) K/uL Long # (Auto) 0.50 (0.00-0.90) K/UL Eos # (Auto) 0.15 (0.00-0.50) K/uL Baso # (Auto) 0.03 (0.00-0.30) K/uL Abs Immat Gran (auto) 0.05 (0.00-0.30) K/uL Imm/Tot Granulo (auto) 0.7 % Sodium 136 (135-149) mmol/L Potassium 4.2 (3.6-5.1) mmol/L Chloride 104 (96-114) mmol/L Carbon Dioxide 25 (20-32) mmol/L Anion Gap 7 (7-15) mEq/L BUN 36 H (7-30) mg/dL Creatinine 0.8 (0.5-1.5) mg/dL Estimated Creat Clear 60.48 Estimated GFR 92 ml/min Glucose 102 (60-115) mg/dL Calcium 9.2 (8.4-10.6) mg/dL Blood Type A Positive Antibody Screen NEGATIVE Crossmatch (AHG) See Detail ECG Data Attestation: I personally reviewed and interpreted this ECG as follows: (Right bundle-branch block. Rate of 62. PVC) Discharge Plan Discharge Clinical Impression: GI bleed, Orthostatic hypotension Patient Disposition: Admitted As Observation
[2023-05-20 16:48] LABS: Basophils Absolute Auto 0.03 K/uL (0.00-0.30); Basophils Percent Auto 0.4 % (0.0-3.0); Eosinophils Absolute Auto 0.15 K/uL (0.00-0.50); Eosinophils Percent Auto 2.2 % (0.0-7.0); Hematocrit 27.3 % (37.0-53.0); Hemoglobin* 9.2 gm/dL (13.5-17.5); Immature Granulocytes Abs Auto 0.05 K/uL (0.00-0.30); Immature Granulocytes Pct Auto 0.7 %; Lymphocytes Absolute Auto 1.93 K/uL (0.90-2.90); Lymphocytes Percent Auto 28.7 % (20-44); Mean Corpuscular HGB Conc 34 gm/dL (32-36); Mean Corpuscular Hemoglobin 28 pg (26-34); Mean Corpuscular Volume 84 fL (80-100); Monocytes Percent Auto 7.7 % (0.0-11.0); Neutrophils Absolute Auto 4.04 K/uL (1.7-7.0); Neutrophils Percent Auto 60.3 % (42.0-72.0); Platelet Count* 233 K/uL (140-440); RDW Coefficient of Variation % 18.2 % (11.5-15.5); Red Blood Count 3.27 m/uL (4.30-5.90); White Blood Count* 6.72 K/uL (4.50-11.00)
[2023-05-20 16:49] LABS: Chloride* 104 mmol/L (96-114); Potassium* 4.2 mmol/L (3.6-5.1); Sodium* 136 mmol/L (135-149)
[2023-05-20 16:51] LABS: Creatinine* 0.8 mg/dL (0.5-1.5); Est. Creatinine Clearance* 60.48; Estimated Glomerular Filt Rate 92 ml/min
[2023-05-20 16:52] LABS: Anion Gap 7 mEq/L (7-15); Blood Urea Nitrogen* 36 mg/dL (7-30); Calcium* 9.2 mg/dL (8.4-10.6); Carbon Dioxide* 25 mmol/L (20-32); Glucose* 102 mg/dL (60-115)
[2023-05-20 17:03] LABS: Slide Review Reflex No
--- OUTSIDE RECORDS SUMMARY | 2023-05-20 17:06 | XMS_ITS | Continuity of Care Document ---
Author Name Unknown Organization [facility] Address [address] [address] [place] [address] Phone Care Team Providers Care Professional Services Consultant Name Role Phone Yoav Damon MD Unavailable Unavailable Procedures Procedure Date Colonoscopy Flex; W/contrl Ble 23 Subsqt Hosp-da E&m Minr Compl 3 Subsqt Hosp-da E&m Minr Compl 3 Init Hosp-da E&m Mod Severity 3 Ugi Endo; Dx W/wo Collec Specm 23 Advance Directives Directive Yes / No Effective Date File Name No Information Encounters Encounter Description Practice Location Reason(s) For Visit Diagnoses Date Provider Providers Copied on Encounter [facility], [address] [address], [place], [place], [address], tel:[phone] [facility] No Information 3 Marisol Cason. [facility] [address], [id number] , [place]. tel:[phone] Referring Provider: Devan Méndez, [address], [place], [address]. tel:[phone] Subsqt Hosp-da E&m Minr Compl [facility], [address] [address], [place], [place], [address], tel:[phone] [facility] No Information 3 Italo Conway. [facility] [address], [id number] , [place]. tel:[phone] Referring Provider: Zoraida Silva, [facility] [address] [place], [address] . tel:[phone] [facility], [address] [address], [place], [place], [address], [place] tel:[phone] [facility] Diverticular hemorrhage Dec- 3 Marisol Cason. [address] [facility], [facility], [place], [place], [id number] , [place]. [phone] Init Hosp-da E&m Mod Severity [facility], [address] [address], [place], [place], [address], [place] tel:[phone] [facility] No Information Dec- 3 Keira العلي. [facility] [address] [address], [place], [place], [id number] , [place]. tel:[phone] Referring Provider: Devan Méndez, [address] [place] [address], [place], [address]. tel:[phone] Family History Family Member Type Diagnosis Age At Onset No Information Payers Payer name Insurance type Covered libertarian ID Authoriza tion(s) [facility] AARP Medic are Complete CI [id number] Social History Type Description Quantity Date Captured Comments Sex Male Smoking Status No Information Chief Complaint And Reason For Visit No Information Reason For Referral Reason For Referral No Information Plan Of Treatment Date Type Action Status Referral Ordered: Colonoscopy Appointment date/timeframe: 02/11/2023 ordered History Of Present Illness Encounter Date Complaint History Of Prese nt Illness No Information Functional Status Date Functional Assessmen t No Information Instructions Date Instruction Additional Infor mation No Information Assessments Type Assessment Date No Information Patient Care Teams Name Effective Dates (start - stop) Status Members No Information
--- OUTSIDE RECORDS SUMMARY | 2023-05-20 17:06 | XMS_ITS | Continuity of Care Document ---
Author Name Unknown Organization [facility] Address [address] [place] [address] Phone Care Team Providers Care Supervisor Wheel Shop Name Role Phone Macho Jack MD Unavailable Unavailable Procedures Procedure Date Office/Outpatient Visit,[facility], [facility] 2020 Advance Directives Directive Yes / No Effective Date File Name No Information Encounters Encounter Description Practice Location Reason(s) For Visit Diagnoses Date Provider Providers Copied on Encounter [facility], [address], [place], [place], [id number], [place] tel:[phone] [facility] No Information 1 Marcie Pritchard. [facility] [place], [address], [address], [place], [place], [id number] , [place]. tel:[phone] Office/Outpat ient Visit,[facility], [facility], [address], [place], [place], [address], [place] tel:[phone] [facility] No Information 1 Marcie Pritchard. [facility] [place], [address], [address], [place], [place], [id number] , [place]. tel:[phone] Referring Provider: Devan Méndez, [facility], [place], [address]. tel:[phone] Family History Family Member Type Diagnosis Age At Onset No Information Payers Payer name Insurance type Covered green party ID Authorfreddiea cuco(s) [employer] [facility] CI [id number] Social History Type Description Quantity Date Captured Comments Sex Male Smoking Status No Information Chief Complaint And Reason For Visit No Information Reason For Referral Reason For Referral No Information History Of Present Illness Encounter Date Complaint History Of Prese nt Illness No Information Functional Status Date Functional Assessmen t No Information Instructions Date Instruction Additional Infor mation No Information Assessments Type Assessment Date No Information Patient Care Teams Name Effective Dates (start - stop) Status Members No Information
--- OUTSIDE RECORDS SUMMARY | 2023-05-20 17:06 | XMS_ITS | Continuity of Care Document ---
Author Name Unknown Organization [facility] Address [address] [place] [address] Phone Care Team Providers Care Cnc Specialist Name Role Phone Macho Jack MD Unavailable Unavailable Procedures Procedure Date Office/Outpatient Visit,[facility], [facility] 2020 Advance Directives Directive Yes / No Effective Date File Name No Information Encounters Encounter Description Practice Location Reason(s) For Visit Diagnoses Date Provider Providers Copied on Encounter [facility], [address], [place], [place], [id number], [place] tel:[phone] [facility] No Information 1 Marcie Pritchard. [facility] [place], [address], [address], [place], [place], [id number] , [place]. tel:[phone] Office/Outpat ient Visit,[facility], [facility], [address], [place], [place], [id number], [place] tel:[phone] [facility] No Information 1 Marcie Pritchard. [facility] [place], [address], [address], [place], [place], [address] , [place]. tel:[phone] Referring Provider: Devan Méndez, [employer], [place], [address]. tel:[phone] Family History Family Member Type Diagnosis Age At Onset No Information Payers Payer name Insurance type Covered constitution party ID Authorfreddiea cuco(s) [employer] [facility] CI [id number] Social History Type Description Quantity Date [...]
--- OUTSIDE RECORDS SUMMARY | 2023-05-20 17:06 | XMS_ITS | Continuity of Care Document ---
Author Name Unknown Organization [facility] Address [address] [address] [place] [address] Phone Care Team Providers Care Linesperson Name Role Phone Yoav Damon MD Unavailable [...] Diagnoses Date Provider Providers Copied on Encounter [facility], [address] [address], [place], [place], [address], tel:[phone] [facility] No Information 3 Marisol Cason. [facility] [address], [id number] , [place]. tel:[phone] Referring Provider: Devan Méndez, [address], [place], [address]. tel:[phone] Subsqt Hosp-da E&m Minr Compl [facility], [address] [address], [place], [place], [address], tel:[phone] [facility] No Information 3 Italo Conway. [facility] [address], [id number] , [place]. tel:[phone] Referring Provider: Zoraida Silva, [facility] [address] [place], [address] . tel:[phone] [facility], [address] [address], [place], [place], [address], [place] tel:[phone] [facility] Diverticular hemorrhage Dec- 3 Marisol Cason. [address] [facility], [facility] [address], [place], [place], [address] , [place]. [phone] Init Hosp-da E&m Mod Severity [facility], [address] [address], [place], [place], [address], [place] tel:[phone] [facility] No Information Dec- 3 Keira العلي. [facility] [address] [address], [place], [place], [address] , [place]. tel:[phone] Referring Provider: Devan Méndez, [address] [place] [address], [place], [address]. tel:[phone] Family History Family Member Type Diagnosis Age At Onset No Information Payers Payer name Insurance type Covered democrat ID Authoriza tion(s) [facility] AARP Medic are Complete CI [id number] Social History Type Description Quantity Date Captured [...]
--- NOTE | 2023-05-20 19:11 | ED.NURSE ---
Pt brought to the restroom and back in wheelchair. Pt able to stand and transfer to the wheelchair with standby assist.
[2023-05-20] MEDS: 0.9 % SODIUM CHLORIDE 1000 ml 1,000 ML IV (19:36)
[2023-05-20 19:37] LABS: Hemoglobin* 9.1 gm/dL (13.5-17.5)
[2023-05-20] MEDS: 0.9 % SODIUM CHLORIDE 1000 ml 1,000 ML 75 ML IV (20:48)
[2023-05-20] MEDS: PANTOPRAZOLE SODIUM 40 MG INJ IVP (20:48)
--- NOTE | 2023-05-20 21:09 | PM.IMHP1 ---
Hospitalist- H&P: HPI History of Present Illness Time Seen by Provider: 19:00 Date Seen: 05/20/23 Chief complaint: melena, anemia, hypovolemic shock Narrative: Jan Walsh is a 77 year old man who presents with 7 days of melena and increasing number of episodes of orthostasis. 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 That bleeding resolved. Esophagogastroduodenoscopies at that same time was reportedly negative for acute findings. Hemoglobin at that time was as low as 6.0 mg/dL. Did receive packed red blood cell transfusions at that time. At time of discharge his hemoglobin was 7.5. By end of January 2023 is hemoglobin was 12. Review of Systems Status of ROS: Reports: 10 or more systems reviewed and unremarkable except as noted in History and below Narrative: Denies chest heaviness, pressure, tightness, or pain. Has chronic cough. Denies dyspnea at rest, paroxysmal nocturnal dyspnea, orthopnea. Has baseline level of dyspnea with exertion. Denies syncope. Has had several near syncopal episodes in the last 2 days, consistent with orthostasis. Does not ordinarily have this. Denies nausea or vomiting. Acknowledges decreased interest in eating. Denies epigastric pain, dyspepsia, dysphagia, odynophagia. Denies abdominal pain. Denies diarrhea or constipation. Denies dysuria, urgency, frequency, hematuria. Denies focal motor neurologic changes. Denies fevers, rigors, diaphoresis. No recent trauma, injury, travel. No shira bright red blood loss of any sort. Denies palpitations or chest fluttering. Denies myalgias or arthralgias. Continues to smoke 1 pack of cigarettes daily. Has 50 pack-year history of smoking. Continues to drink at least 2 alcoholic beverages did daily, usually in the evening. Sometimes has more. Denies alcohol withdrawal symptoms. Denies use of any other street or recreational drugs. . Lives with his . He still works in a manufacturing plant constructing various industrial items. Enjoys his work. Dr. Cross is his primary care physician. Requests full resuscitation in the event of cardiopulmonary demise. Designates his as his power of workers compensation defense attorney for health should that be required. [facility] Medical History (Updated 05/20/23 @ 21:36 by Pérez Huerta MD) Chronic anticoagulation ?Z79.01 - grind operator (current) use of anticoagulants (ICD-10) ICD (implantable cardioverter-defibrillator) in place ?Z95.810 - Presence of automatic (implantable) cardiac defibrillator (ICD-10) History of right common carotid artery stent placement ?Z98.890 - Other specified postprocedural states (ICD-10) ?Z95.828 - Presence of other vascular implants and grafts (ICD-10) COVID-19 ?U07.1 - COVID-19 (ICD-10) Chronic cough ?R05.3 - Chronic cough (ICD-10) Osteoporosis ?M81.0 - Age-related osteoporosis without current pathological fracture (ICD-10) NSTEMI (non-ST elevation myocardial infarction) ?I21.4 - Non-ST elevation (NSTEMI) myocardial infarction (ICD-10) Carotid atherosclerosis ?I65.29 - Occlusion and stenosis of unspecified carotid artery (ICD-10) Myocardial infarction of anterior wall ?I21.09 - ST elevation (STEMI) myocardial infarction involving other coronary artery of anterior wall (ICD-10) Chronic HFrEF (heart failure with reduced ejection fraction) ?I50.22 - Chronic systolic (congestive) heart failure (ICD-10) Primary hypothyroidism ?E03.9 - Hypothyroidism, unspecified (ICD-10) Spinal stenosis, lumbar ?M48.061 - Spinal stenosis, lumbar region without neurogenic claudication (ICD-10) Essential hypertension ?I10 - Essential (primary) hypertension (ICD-10) PVD (peripheral vascular disease) ?I73.9 - Peripheral vascular disease, unspecified (ICD-10) Paroxysmal atrial fibrillation ?I48.0 - Paroxysmal atrial fibrillation (ICD-10) Mixed hyperlipidemia ?E78.2 - Mixed hyperlipidemia (ICD-10) Coronary artery disease ?I25.10 - Atherosclerotic heart disease of [place] coronary artery without angina pectoris (ICD-10) History of anemia ?Z86.2 - Personal history of diseases of the blood and blood-forming organs and certain disorders involving the immune mechanism (ICD-10) AVM (arteriovenous malformation) of colon with hemorrhage ?K55.21 - Angiodysplasia of colon with hemorrhage (ICD-10) History of gastrointestinal hemorrhage ?Z87.19 - Personal history of other diseases of the digestive system (ICD-10) Alcohol use disorder ?F10.90 - Alcohol use, unspecified, uncomplicated (ICD-10) Tobacco dependence with current use ?F17.200 - Nicotine dependence, unspecified, uncomplicated (ICD-10) Surgical History (Updated 05/20/23 @ 20:33 by Pérez Huerta MD) H/O varicose vein stripping ?Z98.890 - Other specified postprocedural states (ICD-10) Status post lumbar laminectomy ?Z98.890 - Other specified postprocedural states (ICD-10) H/O hernia repair ?Z98.890 - Other specified postprocedural states (ICD-10) ?Z87.19 - Personal history of other diseases of the digestive system (ICD-10) History of coronary artery stent placement ?Z95.5 - Presence of coronary angioplasty implant and graft (ICD-10) S/P CABG x 3 ?Z95.1 - Presence of aortocoronary bypass graft (ICD-10) Family History (Updated 05/20/23 @ 21:20 by Pérez Huerta MD) Brother Heart disease Social History (Updated 05/20/23 @ 21:19 by Pérez Huerta MD) Narrative: . Lives with . Still working in industrial manufacturing. Continues to smoke 1 pack cigarettes daily, with greater than 50 pack-year history of smoking. Drinks minimum of 2 alcoholic beverages in the evening on a daily basis. Denies alcohol withdrawal. Designates as power of workers compensation defense attorney for health should that be required. Requests full resuscitation in the event of cardiopulmonary demise. Primary care physician is Dr. Cross. Smoking Status: Unknown if ever smoked Meds Home Medications and Allergies Home Medications Medication Instructions Recorded Confirmed Type alendronate 70 mg tablet 70 mg PO 12/29/22 History amlodipine 5 mg tablet 5 mg PO DAILY 12/29/22 12/29/22 History atorvastatin 80 mg tablet 80 mg PO DAILY 12/29/22 12/29/22 History azithromycin 250 mg tablet 250 mg PO DIRECTED 12/29/22 12/29/22 History benzonatate 100 mg capsule 100 mg PO 3XD 12/29/22 12/29/22 History clopidogrel 75 mg tablet 75 mg PO DAILY 12/29/22 12/29/22 History levothyroxine 112 mcg tablet 112 mcg PO DAILY 12/29/22 12/29/22 History levothyroxine 88 mcg tablet 88 mcg PO DAILY 12/29/22 05/20/23 History rivaroxaban 20 mg tablet (Xarelto) 20 mg PO DAILY 12/29/22 05/20/23 History Vitamin D3 05/20/23 History aspirin 81 mg tablet,delayed 81 mg PO DAILY 05/20/23 05/20/23 History release (Adult Aspirin Regimen) carvedilol 25 mg tablet 25 mg PO BID 05/20/23 05/20/23 History rosuvastatin 40 mg tablet 40 mg PO DAILY 05/20/23 05/20/23 History Home Medication Comments: Has been off of the clopidogrel for a while. In January 2023 his levothyroxine dose was 112 mcg daily. He completed his dose of azithromycin in December 2022. No longer using the benzonatate. Allergies Allergy/AdvReac Type Severity Reaction Status Date / Time No Known Drug Allergies Allergy Verified 12/29/22 18:49 Exam Narrative: Exam Narrative: I 1st examined him in the emergency department. I secondly examine him on the hospital floor. He appears comfortable in no acute distress when laying down. Vision and hearing are grossly normal. Alert and oriented to self, place, time, situation. Friendly, cooperative, articulate. Mood and affect are congruent. No icterus, jaundice, petechiae. No diaphoresis, tremor, asterixis. Appears thin. Pupils equally round and reactive to light and accommodation. Extraocular muscles are intact. Midline nasal septum. Buccal mucosa is moist. Dentition in fair repair. Neck is supple. Midline trachea. No JVD or hepatojugular reflux. Lungs clear to auscultation with some scattered rhonchi but no wheezes or rales. Chest wall excursions are full. No CVA tenderness. Heart tones with regular rhythm with occasional extra beat. Distant tones. No obvious murmur, gallop, or rub. PMI not laterally displaced. Abdomen is thin with active bowel sounds, soft, nontender. Extremities without edema. Extremities are cool. Capillary refill of upper extremities about 3 seconds. Difficult to palpate pulses in bilateral lower extremities, with known peripheral vascular disease. No focal motor neurologic deficits. Independent with transfer and station. Complains of orthostasis if he stands too long. Const: Vital Signs, click to edit/add: Vital Signs - 24 hr 05/20/23 15:39 05/20/23 16:13 05/20/23 16:14 Temperature 97.3 F L Pulse Rate 59 L 54 L Pulse Rate [Pulse Oximeter] 67 Pulse Rate [orthos tatic lying] Pulse Rate [orthos tatic sitting] Pulse Rate [orthos tatic standing] Respiratory Rate 18 Blood Pressure 127/70 Blood Pressure [Ri ght Upper Arm] 144/74 H Blood Pressure [or thostatic lying] Blood Pressure [or thostatic sitting] Blood Pressure [or thostatic standing ] Pulse Oximetry 99 96 96 Oxygen Delivery Me thod Room Air 05/20/23 16:15 05/20/23 16:30 05/20/23 16:33 Temperature Pulse Rate 61 66 63 Pulse Rate [Pulse Oximeter] Pulse Rate [orthos tatic lying] Pulse Rate [orthos tatic sitting] Pulse Rate [orthos tatic standing] Respiratory Rate Blood Pressure 150/77 H Blood Pressure [Ri ght Upper Arm] Blood Pressure [or thostatic lying] Blood Pressure [or thostatic sitting] Blood Pressure [or thostatic standing ] Pulse Oximetry 96 95 97 Oxygen Delivery Me thod 05/20/23 16:45 05/20/23 17:00 05/20/23 17:02 Temperature Pulse Rate 62 59 L 59 L Pulse Rate [Pulse Oximeter] Pulse Rate [orthos tatic lying] Pulse Rate [orthos tatic sitting] Pulse Rate [orthos tatic standing] Respiratory Rate Blood Pressure 132/73 Blood Pressure [Ri ght Upper Arm] Blood Pressure [or thostatic lying] Blood Pressure [or thostatic sitting] Blood Pressure [or thostatic standing ] Pulse Oximetry 95 98 95 Oxygen Delivery Me thod 05/20/23 17:03 05/20/23 17:15 05/20/23 17:30 Temperature Pulse Rate 59 L 61 61 Pulse Rate [Pulse Oximeter] Pulse Rate [orthos tatic lying] Pulse Rate [orthos tatic sitting] Pulse Rate [orthos tatic standing] Respiratory Rate Blood Pressure Blood Pressure [Ri ght Upper Arm] Blood Pressure [or thostatic lying] Blood Pressure [or thostatic sitting] Blood Pressure [or thostatic standing ] Pulse Oximetry 95 95 96 Oxygen Delivery Me thod 05/20/23 17:32 05/20/23 17:33 05/20/23 17:35 Temperature Pulse Rate 63 61 62 Pulse Rate [Pulse Oximeter] Pulse Rate [orthos tatic lying] Pulse Rate [orthos tatic sitting] Pulse Rate [orthos tatic standing] Respiratory Rate Blood Pressure 139/77 118/74 95/65 Blood Pressure [Ri ght Upper Arm] Blood Pressure [or thostatic lying] Blood Pressure [or thostatic sitting] Blood Pressure [or thostatic standing ] Pulse Oximetry 96 97 96 Oxygen Delivery Me thod 05/20/23 17:36 05/20/23 17:37 05/20/23 17:45 Temperature Pulse Rate 62 62 Pulse Rate [Pulse Oximeter] Pulse Rate [orthos tatic lying] 59 L Pulse Rate [orthos tatic sitting] 62 Pulse Rate [orthos tatic standing] 60 Respiratory Rate Blood Pressure Blood Pressure [Ri ght Upper Arm] Blood Pressure [or thostatic lying] 139/77 Blood Pressure [or thostatic sitting] 118/74 Blood Pressure [or thostatic standing ] 95/65 Pulse Oximetry 97 96 Oxygen Delivery Mn thod 05/20/23 18:00 05/20/23 18:02 05/20/23 18:15 Temperature Pulse Rate 64 59 L 63 Pulse Rate [Pulse Oximeter] Pulse Rate [orthos tatic lying] Pulse Rate [orthos tatic sitting] Pulse Rate [orthos tatic standing] Respiratory Rate Blood Pressure 128/73 Blood Pressure [Ri ght Upper Arm] Blood Pressure [or thostatic lying] Blood Pressure [or thostatic sitting] Blood Pressure [or thostatic standing ] Pulse Oximetry 97 94 96 Oxygen Delivery Mn thod 05/20/23 18:30 05/20/23 18:31 05/20/23 18:45 Temperature Pulse Rate 60 54 L 57 L Pulse Rate [Pulse Oximeter] Pulse Rate [orthos tatic lying] Pulse Rate [orthos tatic sitting] Pulse Rate [orthos tatic standing] Respiratory Rate Blood Pressure 134/76 Blood Pressure [Ri ght Upper Arm] Blood Pressure [or thostatic lying] Blood Pressure [or thostatic sitting] Blood Pressure [or thostatic standing ] Pulse Oximetry 97 96 95 Oxygen Delivery Mn thod 05/20/23 19:04 Temperature Pulse Rate 61 Pulse Rate [Pulse Oximeter] Pulse Rate [orthos tatic lying] Pulse Rate [orthos tatic sitting] Pulse Rate [orthos tatic standing] Respiratory Rate Blood Pressure Blood Pressure [Ri ght Upper Arm] Blood Pressure [or thostatic lying] Blood Pressure [or thostatic sitting] Blood Pressure [or thostatic standing ] Pulse Oximetry 98 Oxygen Delivery Me thod Documenting provider has reviewed patient's vital signs: yes Hospitalist - H&P: Result Labs Labs: Short CBC 05/20/23 05/20/23 Range/Units 16:35 19:32 WBC 6.72 (4.50-11.00) K/uL Hgb 9.2 L 9.1 L (13.5-17.5) gm/dL Hct 27.3 L (37.0-53.0) % Plt Count 233 (140-440) K/uL BMP 05/20/23 16:35 Sodium 136 Potassium 4.2 Chloride 104 Carbon Dioxide 25 BUN 36 H Creatinine 0.8 Glucose 102 Calcium 9.2 Assessment and Plan Assessment and plan (1) Gastrointestinal hemorrhage with melena: Status: Acute (2) Orthostatic hypotension: Status: Acute (3) Hypovolemic shock: Problem comment: Mild Status: Acute (4) Anemia due to gastrointestinal blood loss: Status: Acute (5) Alcohol use disorder: Problem comment: 2-3 drinks per night Status: Acute (6) Tobacco dependence with current use: Problem comment: greater than 1 ppd x 50+ years Status: Acute (7) Chronic anticoagulation: Problem comment: Rivaroxaban Status: Acute (8) Paroxysmal atrial fibrillation: Status: Acute (9) Coronary artery disease: Problem comment: CABG x 3 vessels 11/09/2007, VERMA to LAD, SVG to RCA and OM1 Status: Acute (10) PVD (peripheral vascular disease): Problem comment: h/o critical limb ischemia, s/p aobifem bypass 03/20/2012 Status: Acute (11) Carotid atherosclerosis: Problem comment: stent to right on 12/06/2022 Status: Acute Plan 1. Reviewed impression with patient and his . Reiterated to them that a abattoir manager at a tertiary medical facility, [facility], agreed that patient would do well to be transferred there however they have no beds there or elsewhere in the [facility] at this time where they have Gastroenterology support. 2. Recommended admission to [facility], with close monitoring, serial hemoglobins, crystalloid IV fluids, 1 unit packed red blood cell transfusion. 3. Will try to schedule for esophagogastroduodenoscopies tomorrow. 4. Informed patient and that if his condition worsens that we may need to try to transfer him to a tertiary care facility. 5. Continue with other supportive medications for now although will need to reduce the dose of his beta-florecita and hold his dose of amlodipine. 6. Patient and agreeable with above stated plans and recommendations at this time.
[2023-05-21] VITALS (13 sets, daily range): BP systolic 102–164; BP diastolic 64–85; PULSE 49–63; RESP 12–16; TEMP 36.3–36.8; O2SAT 94–97
[2023-05-21 02:07] LABS: Hemoglobin* 9.3 gm/dL (13.5-17.5)
--- NOTE | 2023-05-21 06:32 | PC.NURSE ---
End of shift: A&Ox3, Corinne at bedside throughout the night. No stools this shift. No pain or N/V. SBA w/ IV pole to BR. Normal saline running at 75hr. Received 1 unit of RBC, recheck only brought HGB from 9.1 to 9.3. 2 unit is on hold per Dr Castillo's orders until recheck this AM. Orthostatic BP'a were completed. EGD to be completed this morning NPO since 0200.
[2023-05-21 06:40] LABS: Hematocrit 28.7 % (37.0-53.0); Hemoglobin* 9.6 gm/dL (13.5-17.5); Mean Corpuscular HGB Conc 33 gm/dL (32-36); Mean Corpuscular Hemoglobin 28 pg (26-34); Mean Corpuscular Volume 84 fL (80-100); Platelet Count* 195 K/uL (140-440); White Blood Count* 6.66 K/uL (4.50-11.00)
[2023-05-21 06:42] LABS: Slide Review Reflex No
[2023-05-21] MEDS: LEVOTHYROXINE 112 MCG TABLET PO (08:09)
[2023-05-21] MEDS: PANTOPRAZOLE SODIUM 40 MG INJ IVP (09:05)
[2023-05-21] MEDS: carvediloL 25 MG TABLET 12.5 MG PO (09:05)
[2023-05-21] MEDS: SODIUM CHLORIDE 0.9 % (FLUSH) 10 ML SYRINGE 5 ML IVF (09:06)
--- NOTE | 2023-05-21 09:42 | W.ANESCHARGE ---
Anesthesia Charges Start Date/Time Anesthesia Start Date: 05/21/23 Anesthesia Start Time: 12:00 Stop Date/Time Anesthesia Stop Date: 05/21/23 Anesthesia Stop Time: 12:17 Summary Emergency: MDA Extremes of Age - Over 70 or under 1: MDA
--- NOTE | 2023-05-21 12:27 | W.ANESCHARGE ---
Anesthesia Charges Start Date/Time Anesthesia Start Date: 05/21/23 Anesthesia Start Time: 12:00 Stop Date/Time Anesthesia Stop Date: 05/21/23 Anesthesia Stop Time: 12:17 Summary Emergency: TELEVISION CABLE INSTALLER
[2023-05-21] MEDS: 0.9 % SODIUM CHLORIDE 1000 ml 1,000 ML 75 ML IV (14:47)
--- NOTE | 2023-05-21 15:09 | PM.DST ---
Transfer Discharge Sum: Prov Provider Date Seen: 05/21/23 Date of admission: 05/20/23 19:29 Primary care physician: Devan Cross MD Admitting clinician: Pérez Huerta Consults: Dr. Marleen Green of General Surgery (EGD) Attending physician on discharge: Carol Ann Nichols Anticipated date of transfer: 05/21/23 Receiving physician/facility: [facility] DS: Diagnosis Discharge Diagnosis (1) Gastrointestinal hemorrhage with melena: Status: Acute Problem details: - EGD performed by General Surgery on 05/21, mild duodenitis without evidence of acute bleeding - given patient's h/o LGIB (2/2 AVM) in 12/29 in addition to comorbidities, recommend transfer to tertiary care center for further workup and management - Reviewed with GI and hospitalist at [facility], who agree to accept the patient in transfer - he remains on a clear liquid diet prior to transfer (2) Anemia due to gastrointestinal blood loss: Status: Acute Problem details: - Hgb 9.2 on presentation (last outpatient Hgb 12/6 in 01/28), transfused 1U PRBCs, Hgb 9.6 on 05/21 (3) Alcohol use disorder: Status: Acute Problem details: - 2-3 drinks per night, no evidence of withdrawal (4) Tobacco dependence with current use: Status: Acute Problem details: - greater than 1 ppd x 50+ years (5) Coronary artery disease: Status: Acute Problem details: - CABG x 3 vessels 11/09/2007, VERMA to LAD, SVG to RCA and OM1 (6) PVD (peripheral vascular disease): Status: Acute Problem details: - h/o critical limb ischemia, s/p aobifem bypass 03/20/2012 (7) Paroxysmal atrial fibrillation: Status: Acute Problem details: - anticoagulated on Rivaroxaban and ASA (HOLDING these on 05/20 admission) - rate controlled on Coreg Transfer Discharge Sum: Med Medications Active and Home Medications: Home Medications alendronate 70 mg tablet 70 mg PO Q7D 12/29/22 [History Confirmed 05/21/23] levothyroxine 112 mcg tablet 112 mcg PO DAILY 12/29/22 [History Confirmed 05/21/23] rivaroxaban 20 mg tablet (Xarelto) 20 mg PO QPM 12/29/22 [History Confirmed 05/21/23] aspirin 81 mg tablet,delayed release (Adult Aspirin Regimen) 81 mg PO DAILY 05/20/23 [History Confirmed 05/20/23] carvedilol 25 mg tablet 25 mg PO BID 05/20/23 [History Confirmed 05/20/23] rosuvastatin 40 mg tablet 40 mg PO DAILY 05/20/23 [History Confirmed 05/20/23] acetaminophen 325 mg tablet 650 mg PO TID PRN 05/21/23 [History Confirmed 05/21/23] cholecalciferol (vitamin D3) 25 mcg (1,000 unit) tablet 50 mcg PO DAILY 05/21/23 [History Confirmed 05/21/23] diphenhydramine HCl 25 mg tablet (Allergy Medicine) 25 mg PO QHS PRN 05/21/23 [History Confirmed 05/21/23] loratadine 10 mg tablet (Allerclear) 10 mg PO DAILY PRN 05/21/23 [History Confirmed 05/21/23] Active Medications Acetaminophen (Acetaminophen 325 Mg Tablet) 650 mg PO Q6H PRN Carvedilol (Carvedilol 25 Mg Tablet) 12.5 mg PO BID [facility] Last Admin: 05/21/23 09:05 Dose: 12.5 mg Sodium Chloride (0.9 % Sodium Chloride 1000 Ml) 1,000 mls @ 75 mls/hr IV .[id number] [facility] Last Admin: 05/21/23 14:47 Dose: 75 mls/hr Levothyroxine Sodium (Levothyroxine 112 Mcg Tablet) 112 mcg PO 0730 [facility] Last Admin: 05/21/23 08:09 Dose: 112 mcg Nicotine (Nicotine 21 Mg Patch) 1 patch TRANSDERMA Q24H [facility] Last Admin: 05/20/23 20:48 Dose: Not Given Pantoprazole Sodium (Pantoprazole Sodium 40 Mg Inj) 40 mg IVP DAILY [facility] Last Admin: 05/21/23 09:05 Dose: 40 mg Sodium Chloride (0.9 % Sodium Chloride 250 Ml) 250 ml IV ONCE PRN Sodium Chloride (Sodium Chloride 0.9 % (Flush) 10 Ml Syringe) 5 ml IVF .FLUSH PRN Sodium Chloride (Sodium Chloride 0.9 % (Flush) 10 Ml Syringe) 5 ml IVF BID [facility] Last Admin: 05/21/23 09:06 Dose: 5 ml Transfer Discharge Sum: Hosp Hospital Course Hospital course: Jan Walsh is a 77 year old male who presented to the emergency room on 05/20 for melanotic stools, present for approximately 1 week. He was noted to have a hemoglobin of 9.2 (previous outpatient hemoglobin 12.6, 4 months ago), transfused 1 unit PRBCs. Anticoagulation was held, PPI initiated, transfer attempted but there were no beds available at tertiary care facilities. He was admitted overnight and kept NPO. EGD performed on hospital day 1 by General surgery exhibited duodenitis without evidence of acute bleeding. Patient has a history of lower GI bleed secondary to AVM in December of 2022. Given this history, melena, and significant comorbidities, recommend transfer to tertiary care facility for further management. Patient and in agreement; GI and Hospitalist at [facility] accept Jan in transfer. Time Spent with Patient Time attestation: Total time spent providing and/or coordinating transfer services: Total time spent: Greater than 30 minutes Exam Narrative: Exam Narrative: GEN: Alert and oriented, sitting comfortably in bed and nontoxic HEENT: EOMIs bilaterally, no scleral icterus, mild conjunctival pallor CV: RRR, No concerning murmurs, rubs, or gallops R: LCTA bilaterally without concerning wheezing, air movement adequate Ab: soft and nontender Ext: wwp, no concerning edema Skin: No concerning skin lesions or rashes on exposed skin Neuro: Nonfocal Psych: Appropriate Const: Vital Signs, click to edit/add: Vital Signs - 24 hr 05/20/23 15:39 05/20/23 16:13 05/20/23 16:14 Temperature 97.3 F L Pulse Rate 59 L 54 L Pulse Rate [Pulse Oximeter] 67 Pulse Rate [Right Pulse Oximeter] Pulse Rate [orthos tatic lying] Pulse Rate [orthos tatic sitting] Pulse Rate [orthos tatic standing] Respiratory Rate 18 Blood Pressure 127/70 Blood Pressure [Ri ght Arm] Blood Pressure [Ri ght Upper Arm] 144/74 H Blood Pressure [or thostatic lying] Blood Pressure [or thostatic sitting] Blood Pressure [or thostatic standing ] Pulse Oximetry 99 96 96 Oxygen Delivery Me thod Room Air 05/20/23 16:15 05/20/23 16:30 05/20/23 16:33 Temperature Pulse Rate 61 66 63 Pulse Rate [Pulse Oximeter] Pulse Rate [Right Pulse Oximeter] Pulse Rate [orthos tatic lying] Pulse Rate [orthos tatic sitting] Pulse Rate [orthos tatic standing] Respiratory Rate Blood Pressure 150/77 H Blood Pressure [Ri ght Arm] Blood Pressure [Ri ght Upper Arm] Blood Pressure [or thostatic lying] Blood Pressure [or thostatic sitting] Blood Pressure [or thostatic standing ] Pulse Oximetry 96 95 97 Oxygen Delivery Wv thod 05/20/23 16:45 05/20/23 17:00 05/20/23 17:02 Temperature Pulse Rate 62 59 L 59 L Pulse Rate [Pulse Oximeter] Pulse Rate [Right Pulse Oximeter] Pulse Rate [orthos tatic lying] Pulse Rate [orthos tatic sitting] Pulse Rate [orthos tatic standing] Respiratory Rate Blood Pressure 132/73 Blood Pressure [Ri ght Arm] Blood Pressure [Ri ght Upper Arm] Blood Pressure [or thostatic lying] Blood Pressure [or thostatic sitting] Blood Pressure [or thostatic standing ] Pulse Oximetry 95 98 95 Oxygen Delivery Wv thod 05/20/23 17:03 05/20/23 17:15 05/20/23 17:30 Temperature Pulse Rate 59 L 61 61 Pulse Rate [Pulse Oximeter] Pulse Rate [Right Pulse Oximeter] Pulse Rate [orthos tatic lying] Pulse Rate [orthos tatic sitting] Pulse Rate [orthos tatic standing] Respiratory Rate Blood Pressure Blood Pressure [Ri ght Arm] Blood Pressure [Ri ght Upper Arm] Blood Pressure [or thostatic lying] Blood Pressure [or thostatic sitting] Blood Pressure [or thostatic standing ] Pulse Oximetry 95 95 96 Oxygen Delivery Wv thod 05/20/23 17:32 05/20/23 17:33 05/20/23 17:35 Temperature Pulse Rate 63 61 62 Pulse Rate [Pulse Oximeter] Pulse Rate [Right Pulse Oximeter] Pulse Rate [orthos tatic lying] Pulse Rate [orthos tatic sitting] Pulse Rate [orthos tatic standing] Respiratory Rate Blood Pressure 139/77 118/74 95/65 Blood Pressure [Ri ght Arm] Blood Pressure [Ri ght Upper Arm] Blood Pressure [or thostatic lying] Blood Pressure [or thostatic sitting] Blood Pressure [or thostatic standing ] Pulse Oximetry 96 97 96 Oxygen Delivery Wv thod 05/20/23 17:36 05/20/23 17:37 05/20/23 17:45 Temperature Pulse Rate 62 62 Pulse Rate [Pulse Oximeter] Pulse Rate [Right Pulse Oximeter] Pulse Rate [orthos tatic lying] 59 L Pulse Rate [orthos tatic sitting] 62 Pulse Rate [orthos tatic standing] 60 Respiratory Rate Blood Pressure Blood Pressure [Ri ght Arm] Blood Pressure [Ri ght Upper Arm] Blood Pressure [or thostatic lying] 139/77 Blood Pressure [or thostatic sitting] 118/74 Blood Pressure [or thostatic standing ] 95/65 Pulse Oximetry 97 96 Oxygen Delivery Me thod 05/20/23 18:00 05/20/23 18:02 05/20/23 18:15 Temperature Pulse Rate 64 59 L 63 Pulse Rate [Pulse Oximeter] Pulse Rate [Right Pulse Oximeter] Pulse Rate [orthos tatic lying] Pulse Rate [orthos tatic sitting] Pulse Rate [orthos tatic standing] Respiratory Rate Blood Pressure 128/73 Blood Pressure [Ri ght Arm] Blood Pressure [Ri ght Upper Arm] Blood Pressure [or thostatic lying] Blood Pressure [or thostatic sitting] Blood Pressure [or thostatic standing ] Pulse Oximetry 97 94 96 Oxygen Delivery Me thod 05/20/23 18:30 05/20/23 18:31 05/20/23 18:45 Temperature Pulse Rate 60 54 L 57 L Pulse Rate [Pulse Oximeter] Pulse Rate [Right Pulse Oximeter] Pulse Rate [orthos tatic lying] Pulse Rate [orthos tatic sitting] Pulse Rate [orthos tatic standing] Respiratory Rate Blood Pressure 134/76 Blood Pressure [Ri ght Arm] Blood Pressure [Ri ght Upper Arm] Blood Pressure [or thostatic lying] Blood Pressure [or thostatic sitting] Blood Pressure [or thostatic standing ] Pulse Oximetry 97 96 95 Oxygen Delivery Me thod 05/20/23 19:04 05/20/23 20:00 05/20/23 20:00 Temperature 98.3 F Pulse Rate 61 Pulse Rate [Pulse Oximeter] Pulse Rate [Right Pulse Oximeter] 61 Pulse Rate [orthos tatic lying] Pulse Rate [orthos tatic sitting] Pulse Rate [orthos tatic standing] Respiratory Rate 18 Blood Pressure Blood Pressure [Ri ght Arm] 155/76 H Blood Pressure [Ri ght Upper Arm] Blood Pressure [or thostatic lying] Blood Pressure [or thostatic sitting] Blood Pressure [or thostatic standing ] Pulse Oximetry 98 98 98 Oxygen Delivery Wv thod Room Air Room Air 05/20/23 21:59 05/20/23 22:15 05/20/23 22:53 Temperature 98 F 98.2 F Pulse Rate 61 58 L Pulse Rate [Pulse Oximeter] Pulse Rate [Right Pulse Oximeter] Pulse Rate [orthos tatic lying] Pulse Rate [orthos tatic sitting] Pulse Rate [orthos tatic standing] Respiratory Rate 16 16 Blood Pressure 140/73 H 139/73 Blood Pressure [Ri ght Arm] Blood Pressure [Ri ght Upper Arm] Blood Pressure [or thostatic lying] Blood Pressure [or thostatic sitting] Blood Pressure [or thostatic standing ] Pulse Oximetry 98 97 94 Oxygen Delivery Wv thod Room Air 05/20/23 23:00 05/21/23 00:08 05/21/23 00:24 Temperature 97.8 F 98 F Pulse Rate 63 61 60 Pulse Rate [Pulse Oximeter] Pulse Rate [Right Pulse Oximeter] Pulse Rate [orthos tatic lying] Pulse Rate [orthos tatic sitting] Pulse Rate [orthos tatic standing] Respiratory Rate 16 16 Blood Pressure 146/72 H 146/78 H Blood Pressure [Ri ght Arm] Blood Pressure [Ri ght Upper Arm] Blood Pressure [or thostatic lying] Blood Pressure [or thostatic sitting] Blood Pressure [or thostatic standing ] Pulse Oximetry 98 97 Oxygen Delivery Wv thod 05/21/23 02:16 05/21/23 06:30 05/21/23 07:53 Temperature 98.2 F 97.7 F Pulse Rate Pulse Rate [Pulse Oximeter] Pulse Rate [Right Pulse Oximeter] 60 61 Pulse Rate [orthos tatic lying] 55 L Pulse Rate [orthos tatic sitting] 60 Pulse Rate [orthos tatic standing] 57 L Respiratory Rate 16 14 Blood Pressure Blood Pressure [Ri ght Arm] 136/73 143/75 H Blood Pressure [Ri ght Upper Arm] Blood Pressure [or thostatic lying] 131/64 Blood Pressure [or thostatic sitting] 117/76 Blood Pressure [or thostatic standing ] 102/68 Pulse Oximetry 95 94 Oxygen Delivery Wv thod Room Air Room Air 05/21/23 07:53 05/21/23 07:53 05/21/23 08:47 Temperature Pulse Rate 60 Pulse Rate [Pulse Oximeter] Pulse Rate [Right Pulse Oximeter] 61 Pulse Rate [orthos tatic lying] Pulse Rate [orthos tatic sitting] Pulse Rate [orthos tatic standing] Respiratory Rate 14 14 Blood Pressure Blood Pressure [Ri ght Arm] Blood Pressure [Ri ght Upper Arm] Blood Pressure [or thostatic lying] Blood Pressure [or thostatic sitting] Blood Pressure [or thostatic standing ] Pulse Oximetry 94 Oxygen Delivery Me thod Room Air 05/21/23 11:02 05/21/23 12:40 05/21/23 13:00 Temperature 97.9 F 97.7 F 97.4 F L Pulse Rate Pulse Rate [Pulse Oximeter] Pulse Rate [Right Pulse Oximeter] 59 L 63 62 Pulse Rate [orthos tatic lying] Pulse Rate [orthos tatic sitting] Pulse Rate [orthos tatic standing] Respiratory Rate 14 14 16 Blood Pressure Blood Pressure [Ri ght Arm] 138/78 134/72 163/85 H Blood Pressure [Ri ght Upper Arm] Blood Pressure [or thostatic lying] Blood Pressure [or thostatic sitting] Blood Pressure [or thostatic standing ] Pulse Oximetry 96 95 96 Oxygen Delivery Me thod Room Air Room Air Room Air 05/21/23 13:15 05/21/23 13:30 Temperature 97.6 F 97.6 F Pulse Rate Pulse Rate [Pulse Oximeter] Pulse Rate [Right Pulse Oximeter] 61 49 L Pulse Rate [orthos tatic lying] Pulse Rate [orthos tatic sitting] Pulse Rate [orthos tatic standing] Respiratory Rate 16 14 Blood Pressure Blood Pressure [Ri ght Arm] 160/83 H 150/83 H Blood Pressure [Ri ght Upper Arm] Blood Pressure [or thostatic lying] Blood Pressure [or thostatic sitting] Blood Pressure [or thostatic standing ] Pulse Oximetry 94 97 Oxygen Delivery Me thod Room Air Room Air Discharge Plan Discharge Disposition: [facility] Discharge Location: [facility] Date of Admission: 05/20/23 19:29 Attending Physician on Admission: Pérez Huerta Attending Provider on Discharge: Carol Ann Nichols Primary Care Provider: Devan Cross Condition: Stable Discharge Medications: No Action alendronate 70 mg tablet 70 mg PO Q7D levothyroxine 112 mcg tablet 112 mcg PO DAILY Xarelto 20 mg tablet 20 mg PO QPM carvedilol 25 mg tablet 25 mg PO BID rosuvastatin 40 mg tablet 40 mg PO DAILY aspirin [Adult Aspirin Regimen] 81 mg tablet,delayed release (DR/EC) 81 mg PO DAILY acetaminophen 325 mg tablet 650 mg PO TID PRN cholecalciferol (vitamin D3) 25 mcg (1,000 unit) tablet 50 mcg PO DAILY diphenhydramine HCl [Allergy Medicine] 25 mg tablet 25 mg PO QHS PRN loratadine [Allerclear] 10 mg tablet 10 mg PO DAILY PRN Follow Up Appointments: Devan Cross MD [Primary Care Provider] - Oxygen: No Urinary Catheter: No Services not available here: GI
[2023-05-21 15:50] LABS: Hemoglobin* 10.1 gm/dL (13.5-17.5)
--- NOTE | 2023-05-21 18:38 | PC.NURSE ---
End of Shift: Patient pleasant and cooperative, A/O. Patient vitally stable, lungs with rhonci, BS WNL, IV running NS at 75. Patient independent in room. Patient denies pain. Patient urinating, No BM this shift. Patient tele=A.fib. Report given to Hilary at [facility].
--- NOTE | 2023-05-21 20:06 | PC.NURSE ---
Patient transferred to [facility] via ambulance at 1925, all transfer paperwork given to ambulance personnel. Patient transported via stretcher.
== END 2023-05-21 19:20 | disposition short-term general hospital (02) ==
LOC: ED 19:09 → MEDSURG 19:32
PROVIDERS: Family Medicine; Admitting Provider Internal Medicine; Emergency Provider Family Medicine; PCP Family Medicine; Visit Provider Internal Medicine
DX: K92.2 Gastrointestinal hemorrhage, unspecified (principal); I95.1 Orthostatic hypotension; D50.0 Iron deficiency anemia secondary to blood loss (chronic); I25.10 Atherosclerotic heart disease of native coronary artery without angina pectoris; I73.9 Peripheral vascular disease, unspecified; I48.0 Paroxysmal atrial fibrillation; R57.1 Hypovolemic shock; I65.21 Occlusion and stenosis of right carotid artery; I10 Essential (primary) hypertension; E03.9 Hypothyroidism, unspecified; K92.1 Melena; R05.3 Chronic cough; F10.90 Alcohol use, unspecified, uncomplicated; F17.200 Nicotine dependence, unspecified, uncomplicated; M81.0 Age-related osteoporosis without current pathological fracture; Z79.01 Long term (current) use of anticoagulants; Z79.82 Long term (current) use of aspirin; Z98.890 Other specified postprocedural states; Z86.2 Personal history of diseases of the blood and blood-forming organs and certain disorders involving the immune mechanism; Z86.79 Personal history of other diseases of the circulatory system; Z87.19 Personal history of other diseases of the digestive system; Z95.1 Presence of aortocoronary bypass graft; Z95.828 Presence of other vascular implants and grafts; Z95.810 Presence of automatic (implantable) cardiac defibrillator
CPT/HCPCS: 00731; 36415; 36430; 43239; 80048; 85018; 85025; 85027; 86850; 86900; 86901; 86922; 88305; 99100; 99140; 99283; 99284; 99285; G0378; A9270; C9113; J2704; J7030; P9016

== ENCOUNTER 2023-05-21 19:33 | Outpatient (CLI) | payer MEDICARE, SELFPAY ==
--- OUTSIDE RECORDS SUMMARY | 2023-05-24 15:51 | XMS_ITS | Continuity of Care Document ---
Author Name Unknown Organization [facility] Address [address] [place] [address] Phone Care Team Providers Care Bag Machine Helper Name Role Phone Macho Jack MD Unavailable Unavailable Procedures Procedure Date Office/Outpatient Visit,[facility] [place] Advance Directives Directive Yes / No Effective Date File Name No Information Encounters Encounter Description Practice Location Reason(s) For Visit Diagnoses Date Provider Providers Copied on Encounter [facility], [address], [place], [place], [id number], [place] tel:[phone] [facility] No Information 1 Marcie Pritchard. [facility], [address], [address], [place], [place], [id number] , [place]. tel:[phone] Office/Outpat ient Visit,[facility] [place] [facility], [address], [place], [place], [id number], [place] tel:[phone] [facility] No Information 1 Marcie Pritchard. [facility], [address], [address], [place], [place], [id number] , [place]. tel:[phone] Referring Provider: Devan Méndez, [address], [place], [address]. tel:[phone] Family History Family Member Type Diagnosis Age At Onset No Information Payers Payer name Insurance type Covered constitution party ID Authorfreddiea cuco(s) [employer] [facility] CI [id number] Social History Type Description Quantity Date [...]
== END 2023-05-21 19:34 | disposition home or self-care (01) ==
LOC: AMB 05-24 15:49
PROVIDERS: PCP Family Medicine; Visit Provider Family Medicine
DX: K92.2 Gastrointestinal hemorrhage, unspecified (principal)
CPT/HCPCS: A0425; A0427

== ENCOUNTER 2023-08-22 02:32 | Emergency (ER) | payer MEDICARE, SELFPAY ==
[2023-08-22 02:37] VITALS: BP 154/83; PULSE 58; RESP 16; TEMP 36.1; O2SAT 95; BMI 22.9
--- NOTE | 2023-08-22 03:05 | ED.GENADULT ---
HPI - General Adult General Chief complaint: Epistaxis/Nosebleed Stated complaint: nosebleed Time Seen by Provider: 08/22/23 02:38 History of Present Illness HPI narrative: starting about 0030 awoke from sleep with a nose bleed, patient has hx of nose bleeds, patient on xeralto. attempted to hold pressure at home but nose continues to bleed. 78-year-old man presenting to the emergency department concern of nose bleed. Woke him from sleep. Is taking Xarelto. Has been holding pressure to his nose but it is still bleeding when he lets go. There is no underlying history on review of records of anemia and a GI bleed. He does not head described copious bleeding just continued here today. He is not feeling lightheaded. Review of records shows last hemoglobin at I believe 10.1. Related Data Home Medications Medication Instructions Recorded Confirmed levothyroxine 112 mcg tablet 112 mcg PO DAILY 12/29/22 08/22/23 rivaroxaban 20 mg tablet (Xarelto) 20 mg PO QPM 12/29/22 08/22/23 aspirin 81 mg tablet,delayed 81 mg PO DAILY 05/20/23 08/22/23 release (Adult Aspirin Regimen) carvedilol 25 mg tablet 25 mg PO BID 05/20/23 08/22/23 rosuvastatin 40 mg tablet 40 mg PO DAILY 05/20/23 08/22/23 acetaminophen 325 mg tablet 650 mg PO TID PRN 05/21/23 05/21/23 cholecalciferol (vitamin D3) 25 50 mcg PO DAILY 05/21/23 08/22/23 mcg (1,000 unit) tablet diphenhydramine HCl 25 mg tablet 25 mg PO QHS PRN 05/21/23 05/21/23 (Allergy Medicine) loratadine 10 mg tablet 10 mg PO DAILY PRN 05/21/23 05/21/23 (Allerclear) Previous Rx's Medication Instructions Recorded amoxicillin 500 mg capsule 500 mg PO TID 3 days #9 caps 08/22/23 Allergies Allergy/AdvReac Type Severity Reaction Status Date / Time No Known Drug Allergies Allergy Verified 12/29/22 18:49 Review of Systems Status of ROS: Reports: 6 or more systems reviewed and unremarkable except as noted in History and below [facility] Medical History (Updated 09/06/23 @ 00:00 by Background Daemon) Hypovolemic shock ?R57.1 - Hypovolemic shock (ICD-10) Chronic anticoagulation ?Z79.01 - termite control service representative (current) use of anticoagulants (ICD-10) ICD (implantable cardioverter-defibrillator) in place ?Z95.810 - Presence of automatic (implantable) cardiac defibrillator (ICD-10) History of right common carotid artery stent placement ?Z98.890 - Other specified postprocedural states (ICD-10) ?Z95.828 - Presence of other vascular implants and grafts (ICD-10) COVID-19 ?U07.1 - COVID-19 (ICD-10) Chronic cough ?R05.3 - Chronic cough (ICD-10) Osteoporosis ?M81.0 - Age-related osteoporosis without current pathological fracture (ICD-10) NSTEMI (non-ST elevation myocardial infarction) ?I21.4 - Non-ST elevation (NSTEMI) myocardial infarction (ICD-10) Carotid atherosclerosis ?I65.29 - Occlusion and stenosis of unspecified carotid artery (ICD-10) Myocardial infarction of anterior wall ?I21.09 - ST elevation (STEMI) myocardial infarction involving other coronary artery of anterior wall (ICD-10) Chronic HFrEF (heart failure with reduced ejection fraction) ?I50.22 - Chronic systolic (congestive) heart failure (ICD-10) Primary hypothyroidism ?E03.9 - Hypothyroidism, unspecified (ICD-10) Spinal stenosis, lumbar ?M48.061 - Spinal stenosis, lumbar region without neurogenic claudication (ICD-10) Essential hypertension ?I10 - Essential (primary) hypertension (ICD-10) PVD (peripheral vascular disease) ?I73.9 - Peripheral vascular disease, unspecified (ICD-10) Paroxysmal atrial fibrillation ?I48.0 - Paroxysmal atrial fibrillation (ICD-10) Mixed hyperlipidemia ?E78.2 - Mixed hyperlipidemia (ICD-10) Coronary artery disease ?I25.10 - Atherosclerotic heart disease of [place] coronary artery without angina pectoris (ICD-10) History of anemia ?Z86.2 - Personal history of diseases of the blood and blood-forming organs and certain disorders involving the immune mechanism (ICD-10) AVM (arteriovenous malformation) of colon with hemorrhage ?K55.21 - Angiodysplasia of colon with hemorrhage (ICD-10) History of gastrointestinal hemorrhage ?Z87.19 - Personal history of other diseases of the digestive system (ICD-10) Alcohol use disorder ?F10.90 - Alcohol use, unspecified, uncomplicated (ICD-10) Tobacco dependence with current use ?F17.200 - Nicotine dependence, unspecified, uncomplicated (ICD-10) Surgical History (Updated 05/20/23 @ 20:33 by Pérez Huerta MD) H/O varicose vein stripping ?Z98.890 - Other specified postprocedural states (ICD-10) Status post lumbar laminectomy ?Z98.890 - Other specified postprocedural states (ICD-10) H/O hernia repair ?Z98.890 - Other specified postprocedural states (ICD-10) ?Z87.19 - Personal history of other diseases of the digestive system (ICD-10) History of coronary artery stent placement ?Z95.5 - Presence of coronary angioplasty implant and graft (ICD-10) S/P CABG x 3 ?Z95.1 - Presence of aortocoronary bypass graft (ICD-10) Family History (Updated 05/20/23 @ 21:20 by Pérez Huerta MD) Brother Heart disease Social History (Updated 05/20/23 @ 21:19 by Pérez Huerta MD) Narrative: . Lives with . Still working in industrial manufacturing. Continues to smoke 1 pack cigarettes daily, with greater than 50 pack-year history of smoking. Drinks minimum of 2 alcoholic beverages in the evening on a daily basis. Denies alcohol withdrawal. Designates as power of floor representative for health should that be required. Requests full resuscitation in the event of cardiopulmonary demise. Primary care physician is Dr. Cross. What is your current living situation?: I presently have a place to live Problems where you live: no known problems Problems where you live details: None In the past 12 months, utilities in danger of being shut off: no In past 12 months, lack of transportation kept you from medical appts, meetings, work, or getting things needed for daily living: no In the past 12 mos, have been you worried that your food would run out before you had money to buy more?: never true In the past 12 mos, the food you bought just didn't last and you didn't have money to buy more?: never true Highest level of school completed/degree received: Associate degree: occupational, technical, vocational program Smoking Status: Current every day smoker What tobacco products do you use: cigarettes Smoking packs per day: 1 Smoking cigarettes per day: 20.0 How often do you have a drink containing alcohol: 4 or more times a week Alcohol type: beer How many standard drinks containing alcohol do you have on a typical day: 3 or 4 How often do you have six or more drinks on one occasion: Less than monthly AUDIT-C Alcohol total score: 6 Non-prescribed substance use: denies use Caffeine: No How often does anyone, including family, friends and others, physically hurt you: never How often does anyone, including family, friends and others, insult or talk down to you: never How often does anyone, including family, friends and others, threaten you with harm: never How often does anyone, including family, friends and others, scream or curse at you: never Exam Narrative: Exam Narrative: Pleasant. Fully alert. Skin is warm and dry. He is a slim man. Clot in the right naris. When removed bleeds copiously. It is difficult to assess where exactly bleeding from. I think it is anterior. Blood at left naris as well but no clear active bleeding here. He is not tachycardic. Does take carvedilol. Breathing easily other than congestion from the nose. Const: Vital Signs, click to edit/add: Vital Signs - 24 hr 08/22/23 02:37 Temperature 96.9 F L Pulse Rate [Pulse Oximeter] 58 L Respiratory Rate 16 Blood Pressure [Ri ght Upper Arm] 154/83 H Pulse Oximetry 95 Oxygen Delivery Me thod Room Air Documenting provider has reviewed patient's vital signs: yes Course Vital Signs Vital signs: Initial Vital Signs Temperature 96.9 F L 08/22/23 02:37 Temperature Source Temporal Artery Scan 08/22/23 02:37 Pulse Rate 58 L 08/22/23 02:37 Respiratory Rate 16 08/22/23 02:37 Blood Pressure 154/83 H 08/22/23 02:37 Blood Pressure Mean 106 H 08/22/23 02:37 Blood Pressure Position Supine 08/22/23 02:37 Pulse Oximetry 95 08/22/23 02:37 Oxygen Delivery Method Room Air 08/22/23 02:37 Vital Signs Temperature 96.9 F L 08/22/23 02:37 Pulse Rate 58 L 08/22/23 02:37 Respiratory Rate 16 08/22/23 02:37 Blood Pressure 154/83 H 08/22/23 02:37 Pulse Oximetry 95 08/22/23 02:37 Oxygen Delivery Method Room Air 08/22/23 02:37 Temperature 96.9 F L 08/22/23 02:37 Pulse Rate 58 L 08/22/23 02:37 Respiratory Rate 16 08/22/23 02:37 Blood Pressure 154/83 H 08/22/23 02:37 Pulse Oximetry 95 08/22/23 02:37 Oxygen Delivery Method Room Air 08/22/23 02:37 Medications Administered Medications: Discontinued Medications Generic Name Dose Route Start Last Admin Trade Name Danae PRN Reason Stop Dose Admin Cocaine HCl 4 ml 08/22/23 02:56 08/22/23 03:39 Cocaine Hcl 4 % 4 Ml Solution NOSTRIL-B 08/22/23 02:57 4 ml ONCE ONE Administration Medical Decision Making MDM Narrative Medical decision making narrative: Did not collect labs today. Given degree of bleeding described and moderate control and otherwise asymptomatic I think stopping the bleeding most important aspect here. Assessed and treated far less than 4 hours from onset. Reviewed records. Placed cocaine soaked cotton balls into both nostrils. Clamped. Trouble getting clamp to stay and furthermore blood continues to ooze particularly from the right side. Placed a cutdown Merocel and managed to control bleeding upon reassessment. Tolerating well. See patient discharge plan Medical Records Medical records reviewed: Yes I reviewed the patient's medical records Discharge Plan Discharge Clinical Impression: Anticoagulated, Epistaxis Patient Disposition: Home w/ Parent or Adult Condition: Improved Additional Instructions: Leave this packing in for 48 to 72 hours. A little oozing, getting pink at the edges or drops here and there are okay. I sent in some amoxicillin for you as prophylaxis against infection with this ?nasal tampon in place. Consider placing a small amount of white petroleum jelly into your nose 2-3 times daily through the winter to help keep it moist. Keep humidifying the air in your home, bedroom. Can temporarily use lightly moistened/dampened cotton balls as we did here today if needed in the future. Can then clamp also with the nose clamp you have now. Prescriptions: New amoxicillin 500 mg capsule 500 mg PO TID 3 Days Qty: 9 0RF No Action levothyroxine 112 mcg tablet 112 mcg PO DAILY Xarelto 20 mg tablet 20 mg PO QPM carvedilol 25 mg tablet 25 mg PO BID rosuvastatin 40 mg tablet 40 mg PO DAILY aspirin [Adult Aspirin Regimen] 81 mg tablet,delayed release (DR/EC) 81 mg PO DAILY acetaminophen 325 mg tablet 650 mg PO TID PRN cholecalciferol (vitamin D3) 25 mcg (1,000 unit) tablet 50 mcg PO DAILY diphenhydramine HCl [Allergy Medicine] 25 mg tablet 25 mg PO QHS PRN loratadine [Allerclear] 10 mg tablet 10 mg PO DAILY PRN Follow Up/Referrals: Devan Cross MD [Primary Care Provider] - Stand Alone Forms: [facility] Info Instructions
--- OUTSIDE RECORDS SUMMARY | 2023-08-22 03:08 | XMS_ITS | Continuity of Care Document ---
Author Name Unknown Organization [facility] Address [address] [address] [place] [address] Phone Care Team Providers Care American Sign Language Teacher Name Role Phone Zheng Machuca MD Unavailable Unavailabl e Procedures Procedure Date Init Hosp-da E&m Mod Severity 3 Colonoscopy Flex; W/contrl Ble 23 Colonoscopy Flex; W/remov Les- 23 Colonoscopy Flex; W/contrl Ble 23 Subsqt Hosp-da E&m Minr Compl 3 Subsqt Hosp-da E&m Minr Compl 3 Init Hosp-da E&m Mod Severity 3 Ugi Endo; Dx W/wo Collec Specm 23 Advance Directives Directive Yes / No Effective Date File Name No Information Encounters Encounter Description Practice Location Reason(s) For Visit Diagnoses Date Provider Providers Copied on Encounter [facility], [address] [address], [place], [place], [id number], [place] tel:[phone] [facility] No Information 3 Bright Calzada. [address], [id number] , [place]. tel: [phone] Init Hosp-da E&m Mod Severity [facility], [address] [address], [place], [place], [id number], [place] tel:[phone] [facility] No Information 3 Corky Burris. [address] [facility] [address], [place], [place], [id number] , [place]. tel: [phone] Referring Provider: Jan Barriga, [address] [facility], [place], [address]. tel:[phone] [facility], [address] [address], [place], [place], [id number], [place] tel:[phone] [facility] No Information 3 Marisol Cason. [address] [facility], [facility] [address], [place], [place], [id number] , [place]. [phone] Referring Provider: Devan Méndez, [address] , [place], [address]. tel:[phone] Subsqt Hosp-da E&m Minr Compl [facility], [address] [address], [place], [place], [id number], [place] tel:[phone] [facility] No Information 3 Italo Conway. [address] [place] [address], [facility] [address], [place], [place], [id number] , [place]. tel:[phone] Referring Provider: Zoraida Puckett NP P, [address] [facility] [address], [place], [address] . tel:[phone] [facility], [address] [address], [place], [place], [address], [place] tel:[phone] [facility] Diverticular hemorrhage 3 Marisol Cason. [facility], [facility] [address], [place], [place], [id number] , [place]. [phone] Init Hosp-da E&m Mod Severity [facility], [address] [address], [place], [place], [address], [place] tel:[phone] [facility] No Information 3 Keira العلي. [address] [facility], [address], [place], [place], [id number] , [place]. [phone] Referring Provider: Devan Méndez, [address] , [place], [address]. tel:[phone] Family History Family Member Type Diagnosis Age At Onset No Information Payers Payer name Insurance type Covered republican ID Authoriza tithomas(s) No Information Social History Type Description Quantity Date Captured [...]
--- OUTSIDE RECORDS SUMMARY | 2023-08-22 03:08 | XMS_ITS | Continuity of Care Document ---
Author Name Unknown Organization [facility] Address [address] [place] [address] Phone Care Team Providers Care Undercover Agent Name Role Phone Macho Jack MD Unavailable Unavailable Procedures Procedure Date Office/Outpatient Visit[place] [facility] [place] Advance Directives Directive Yes / No Effective Date File Name No Information Encounters Encounter Description Practice Location Reason(s) For Visit Diagnoses Date Provider Providers Copied on Encounter [facility], [address], [place], [place], [id number], [place] tel:[phone] [facility] No Information Marcie Pritchard. [facility], [address], [place], [place], [id number] , [place]. tel:[phone] Office/Outpat ient Visit[place] [place] [facility], [address], [place], [place], [address], [place] tel:[phone] [facility] No Information 1 Marcie Pritchard. [facility] [place], [address], [address], [place], [place], [id number] , [place]. tel:[phone] Referring Provider: Devan Méndez, [address], [place], [address]. tel:[phone] Family History Family Member Type Diagnosis Age At Onset No Information Payers Payer name Insurance type Covered alliance party ID Authorfreddiea cuco(s) [employer] [facility] CI [id number] Social History Type Description Quantity Date [...]
[2023-08-22] MEDS: COCAINE HCL 4 % 4 ML SOLUTION NOSTRIL-B (03:39)
== END 2023-08-22 04:14 | disposition home or self-care (01) ==
PROVIDERS: Emergency Provider Family Medicine; PCP Family Medicine
DX: R04.0 Epistaxis (principal)
CPT/HCPCS: 30901; 95992; 99283; 99284; A9270

== ENCOUNTER 2024-09-15 16:42 | Emergency (ER) | payer MEDICARE, SELFPAY ==
[2024-09-15] VITALS (19 sets, daily range): BP systolic 163–192; BP diastolic 96–123; PULSE 61–76; RESP 14–16; TEMP 36.1–36.5; O2SAT 90–98; BMI 21.5
--- OUTSIDE RECORDS SUMMARY | 2024-09-15 16:44 | XMS_ITS | Clinical Summary ---
Author Organization [employer] [facility] [employer] [facility] Address [place], [place] [address] Care Team Providers Care Bacteriology Teacher Name Role Phone Devan Cross MD Primary Care Provider Shashi Barraza MD Unavailable Unavailabl e Jesusita Albert DO Unavailable [phone] Allergies Active Allergy Reactions Criticality Noted Date Comments Unlisted Allergen (Include Detail In Comments) Hives,Contact Dermatitis 12/19/2022 Dermabond-topical skin adhesive Medications cholecalciferol (Vitamin D) 1,000 unit capsuleIndications: Vitamin D deficiency Take 2 Capsules (2,000 units) by mouth once daily. 180 Capsule 3 3 Active levothyroxine (SYNTHROID) 112 mcg tabletIndications:H ypothyroidism (acquired) Take 1 Tablet (112 mcg) by mouth before breakfast. 90 Tablet 3 4 Active rosuvastatin (CRESTOR) 40 mg tabletIndications:M ixed hyperlipidemia Take 1 Tablet (40 mg) by mouth at bedtime. 90 Tablet 3 4 Active carvediloL (COREG) 25 mg tabletIndications:C hronic combined systolic and diastolic heart failure (HC),Myocardial infarction of anterior wall (HC) Take 1 Tablet (25 mg) by mouth two times daily. 180 Tablet 3 4 Active losartan (COZAAR) 50 mg tabletIndications:S /P CABG (coronary artery bypass graft) Take 1 Tablet (50 mg) by mouth once daily. 90 Tablet 3 4 Active rivaroxaban (Xarelto) 20 mg tabletIndications:P aroxysmal atrial fibrillation (HC) TAKE 1 TABLET (20 MG) BY MOUTH ONCE DAILY WITH EVENING MEAL. 90 Tablet 3 4 Active Active Problems Problem Noted Date Diagnosed Date PAD (peripheral artery disease) 05/21/2023 Normocytic anemia 05/21/2023 GI bleed 05/21/2023 AVM (arteriovenous malformation) 05/21/2023 COVID-19 01/31/2023 Overview (01/31/2023): Patient indicates in 2020 Chronic cough 01/31/2023 Overview (01/31/2023): Patient is a smoker AVM of colon; clipped via c-scope 12/31/2022. 11/2022 Acute blood loss anemia 12/29/2022 Acute lower GI bleeding 12/29/2022 Chronic HFrEF (heart failure with reduced ejection fraction) 12/29/2022 Carotid stenosis, asymptomatic, right 12/06/2022 Hypothyroidism 12/06/2022 Osteoporosis 09/08/2022 Overview (10/14/2022): Progressed from osteopenia in 2018 despite 5 years of alendronate. Spinal stenosis of lumbar region 10/18/2020 Gluteal pain 08/30/2020 Benign essential HTN 08/30/2020 PVD (peripheral vascular disease) 07/14/2020 Left ventricular dysfunction 02/08/2016 NSTEMI (non-ST elevated myocardial infarction) 0 01/31/2016 Paroxysmal atrial fibrillation 01/31/2016 Mixed hyperlipidemia 12/20/2015 Coronary atherosclerosis of unspecified type of vessel, [place] or graft 11/10/2007 Overview (11/10/2007): - s/p Coronary artery bypass graft x3 with a graft with VERMA to LAD, SVG to RCA and OM1 Myocardial infarction of anterior wall 8 Overview (11/09/2007): - Prelim Echo 11/08/2007 LVH, inferior, lateral akinesis, EF 45-50%, trace AI, trace MR, trace TR and PI. Tobacco use disorder 11/07/2007 Overview (03/13/2012): - 1 PPD x 50 years Corns and callosities 01/08/2007 Resolved Problems Problem Noted Date Diagnosed Date Resolved Date PMR (polymyalgia rheumatica) 02/08/2016 11/10/2019 Heart failure, systolic and diastolic - chronic 03/20/2012 12/29/2022 Carotid atherosclerosis 03/13/2012 05/0 11/2022 Critical lower limb ischemia --s/p aobifem bypass 03-20-12 03/13/2012 12/05/2023 Overview (04/09/2012): - Kissing common iliac stents, 1998 - hx of revission angioplasty and stenting and TPA thrombolysis of occluded right iliac in Oct 2005. - After that his KRANTHI's were 0.95 on right and 0.78 on left. - Right common iliac stent dislodged into aorta during emergency coronary angiography in [place] 11/2007. The aortagram from 11/07/2007 show significant restenosis in both common iliacs left>right but his KRANTHI's today are 0.77 right and 0.68 left with biphasic flow in the [employer]'s. - flouro'ed the stents 8 mm stent in the distal aorta on the left side. No intervention done. Acute right lower extremity CLI with rest pain onset 03/07/2012- right common femoral occlusion, right SFA occluison. KRANTHI 0.35 on right, 0.44 on left. Aortobifemoral bypass, 03/20/2012. Post-op KRANTHI 0.83 right, 0.97 left. Mixed hyperlipidemia 11/07/2007 023 Overview (03/13/2012): - Lipid panel from 11/10/07 showed a total chol of 158, TG 99, HDL 35, LDL 103 - Started on Zocor 10 mg daily. - Will need FLP/AST/ALT in 6-8 weeks. Goal LDL cholesterol <70. Stopped statin RX in 2008 due to cost Encounters Date Type Department Care Team Description 09/15/2024 Nurse Triage [facility] [address] [place] [address] Devan Cross MD Defibrillator Problem 07/29/2024 1:02 PM PROFESSOR OF BIOCHEMISTRY - 07/29/2024 11:59 PM PROFESSOR OF BIOCHEMISTRY Hospital Encounter [facility] [address] [place] [address] Osteoporosis, unspecified osteoporosis type, unspecified pathological fracture presence (Primary Dx) 07/29/2024 Travel 07/29/2024 Refill [facility] [address] [place] [address] Devan Cross MD Refill Request (Xarelto) 07/26/2024 Telephone [facility] [address] [place] [address] Olga Ludwig, SAND MIXER OPERATOR Appointment 07/26/2024 Telephone [facility] [address] [facility] [address] [facility] [address] [place] [address] Jesusita Albert, DO Results 07/23/2024 3:05 PM PROFESSOR OF BIOCHEMISTRY Office Visit [facility] [address] [facility] [address] [facility] [address] [place] [address] Jesusita Albert, DO Follow Up (Osteoporosis) 07/23/2024 Travel from Last 3 Months Immunizations Name Administration Dates Next Due Pneumococcal Poly,23-Valent (Pneumovax) 03/23/20 12 Pneumococcal conj 13-Valent (Prevnar 13) 018 Td (Age >=7 Years) 01/18/2021,06/08/2005 Td, Preservative Free (age >= 7 Years) 5 Tdap 02/05/2014 Family History Medical History Relation Name Comments Heart Disease Brother 1 Heart Disease Brother 2 Anesthesia Problem Neg. 1 Cancer-colon Neg. 2 Cancer-prostate Neg. 3 Diabetes Neg. 4 Relation Name Status Comments Brother 1 Brother 2 Neg. 1 Neg. 2 Neg. 3 Neg. 4 Social History Tobacco Use Types Packs/Day Years Used Date Smoking Tobacco: Every Day Cigarettes 1 60.9 Started: 10/14/1963 Smokeless Tobacco: Never Tobacco Cessation:Ready to Q uit: No; Counseling Given: Yes Alcohol Use Standard Drinks/Week Comments Yes 14 (1 standard drink = 0.6 oz pu re alcohol) 2 beers/day [facility] Utilities Answer Date Recorded Do you have trouble paying f or utilities (for example, heat, electricity, water, phone)? Yes 12/05/2023 PHQ-2 Answer Date Recorded PHQ-2 TOTAL SCORE 0 09/30/2022 Social Connections Answer Date Recorded Do you often feel lonely or isolated from those around you? 0 12/05/2023 Financial Resource Strain Answer Date R ecorded Difficulty of Paying Living Expenses 3 12/05/2023 Difficulty of Paying Living Expenses Not on file 12/05/2023 Food Insecurity Answer Date Recorded Do you worry your food will run out before you are able to buy more? 1 12/05/2023 Transportation Needs Answer Date Record ed Does lack of transportation keep you from medica l appointments? 1 12/05/2023 Does lack of transportation keep you from work, meetings or getting things that you need? 1 12/05/2023 Housing Stability Answer Date Recorded What is your housing situation today? 1 12/05/2023 Sex and Gender Information Value Date Recorded Sex Assigned at Not on file Legal Sex Male 6:09 AM PROFESSOR OF BIOCHEMISTRY Gender Identity Not on file Sexual Orientation Not on file Obstetrics History Last Filed Vital Signs Vital Sign Reading Time Taken Comments Blood Pressure 124/76 07/29/2024 1:04 PM PROFESSOR OF BIOCHEMISTRY Pulse 60 07/29/2024 1:04 PM PROFESSOR OF BIOCHEMISTRY Temperature 36.6 C (97.9 F) 07/28/2023 2:30 PM PROFESSOR OF BIOCHEMISTRY Respiratory Rate 18 07/28/2023 2:30 PM PROFESSOR OF BIOCHEMISTRY Oxygen Saturation 96% 07/29/2024 1:04 PM PROFESSOR OF BIOCHEMISTRY Inhaled Oxygen Concentration - - Weight 70.3 kg (155 lb) 07/23/2024 2:37 PM PROFESSOR OF BIOCHEMISTRY Height 175.3 cm (5' 9) 02/10/2024 3:00 PM CDT Body Mass Index 22.89 02/10/2024 3:00 PM CDT Plan of Treatment Upcoming Encounters Date Type Department Care Team (Late st Contact Info) Description 10/14/2024 Cardiac Device Check [facility] [phone] 07/25/2025 11:20 AM PROFESSOR OF BIOCHEMISTRY Office Visit [facility] [address] [place] [address] Jesusita Albert DO [address] [place] [address] Health Maintenance Due Date Last Done Comments Zoster (shingles) series for age 50+ (1 of 2) 1996 RSV vaccine for adults or (1 - 1-dose 75+ series) 2021 Depression screening for age 12+ 09/30/2023 09/30/2022, 02/02/2021, 02/01/2021, Additional history exists Medicare Wellness for age 65+ 10/01/2023 09/30/[address] (for lung CA) age 50-80 10/09/2023 10/09/2022 COVID-19 vaccine series ( season) 2024 08/09/2021, 02/01/2021 Influenza for age 65+ 05/09/2024 Hepatitis C screening for age 18-79 11/01/2024 Postponed from 1964 (Patient discretion) BMI (ht and wt on same day) for age 18+ 02/09/2025 02/10/2024, 01/31/2023, 01/16/2023, Additional history exists Tetanus booster 01/18/2031 01/18/2021, 01/08, 07/05/2005, Additional history exists Tdap Completed 02/05/2014 Pneumococcal series for age 50+ Completed 04/07/2018, 03/23/2012 Medical Devices Implanted Type Area Biological Plant Operator Device Identifier Shelf Expiration Date Model / Serial / Lot Graft Woven 16x8mm Bif Hemashield [id number] - [id number] Implanted:Qty: 1 on 03/20/[address] [facility] [employer] [id number] / / [id number] Dual Chamber Icd Implanted: 016 by Ricky Hoang MD (Quantity not on file) ICD Only Medtronic EVERA XT DF4 [id number] / [id number] / Description: Procedures Procedure Name Priority Date/Time Associated Diagnosis Comments T4,FREE Routine 07/23/2024 3:21 PM PROFESSOR OF BIOCHEMISTRY COMP METABOLIC PANEL Routine 07/23/2024 3:21 PM PROFESSOR OF BIOCHEMISTRY Age-related osteoporosis without current pathological fracture VITAMIN D 25 (DEFICIENCY) Routine 07/23/2024 3:21 PM PROFESSOR OF BIOCHEMISTRY Age-related osteoporosis without current pathological fracture TSH WITH REFLEX Routine 07/23/2024 3:21 PM PROFESSOR OF BIOCHEMISTRY Hypothyroidism, unspecified type CT CHEST SCREENING LOW DOSE WO CONTRAST Routine 10/09/2022 8:26 AM PROFESSOR OF BIOCHEMISTRY Personal history of nicotine dependence from Last 3 Months or Most Recently Relevant to Health Maintenance Results * (ABNORMAL) TSH WITH REFLEX (07/23/2024 3:21 PM PROFESSOR OF BIOCHEMISTRY) TSH W/REFLEX TO FT4 5.13(H) 0.40 - 4.50 mIU/L [facility] Blood BLOOD SPECIMEN / Unknown 07/23/2024 3:21 PM PROFESSOR OF BIOCHEMISTRY 07/23/2024 3:21 PM PROFESSOR OF BIOCHEMISTRY us Irfaan Ahmed Abid DO CHEMISTRY Final Resul t [email or web address] [facility] [address] [place] [address], [facility] [address] [place] [address] * VITAMIN D 25 (DEFICIENCY) (07/23/2024 3:21 PM PROFESSOR OF BIOCHEMISTRY) VITAMIN D,25-OH,TOTAL,IA 31 30 - 100 ng/mL [facility] Comment: Vitamin D Status 25-OH Vitamin D: Deficiency: <20 ng/mL Insufficiency: 20 - 29 ng/mL Optimal: > or = 30 ng/mL For 25-OH Vitamin D testing on patients on D2-supplementation and patients for whom quantitation of D2 and D3 fractions is required, the QuestAssureD(TM) 25-OH VIT D, (D2,D3), LC/MS/MS is recommended: order code [id number] (patients >2yrs). See Note 1 Note 1 For additional information, please refer to http://education.ApeniMED/faq/QLP860 (This link is being provided for informational/ educational purposes only.) Blood BLOOD SPECIMEN / Unknown 07/23/2024 3:21 PM PROFESSOR OF BIOCHEMISTRY 07/23/2024 3:21 PM PROFESSOR OF BIOCHEMISTRY Jesusita Wattjoellen Albert DO SEND OUTS Final Resul t [email or web address] [facility] [address] [place] [address], [place] [phone] [facility] [address] [place] [address] * T4,FREE (07/23/2024 3:21 PM PROFESSOR OF BIOCHEMISTRY) T4, FREE 1.2 0.8 - 1.8 ng/dL [facility] 07/23/2024 3:21 PM PROFESSOR OF BIOCHEMISTRY 07/23/2024 3:21 PM PROFESSOR OF BIOCHEMISTRY [facility] Wattjoellen Albert DO CHEMISTRY Final Resul t Performing Organization Address City/[facility] Co de Phone Number [email or web address] [facility] [address] [place] [phone], [facility] [address] [place] [address] * COMP METABOLIC PANEL (07/23/2024 3:21 PM PROFESSOR OF BIOCHEMISTRY) GLUCOSE 88 65 - 99 mg/dL [facility] Comment: Fasting reference interval UREA NITROGEN (BUN) 17 7 - 25 mg/dL [facility] CREATININE 0.85 0.70 - 1.28 mg/dL [facility] EGFR 89 > OR = 60 mL/min/1. 73m2 [facility] BUN/CREATININE RATIO SEE NOTE: 6 - 22 (calc) [facility] Comment: Not Reported: BUN and Creatinine are within reference range. SODIUM 137 135 - 146 mmol/L [facility] POTASSIUM 3.9 3.5 - 5.3 mmol/L [facility] CHLORIDE 103 98 - 110 mmol/L [facility] CARBON DIOXIDE 28 20 - 32 mmol/L [facility] CALCIUM 9.1 8.6 - 10.3 mg/dL [facility] PROTEIN, TOTAL 6.5 6.1 - 8.1 g/dL [facility] ALBUMIN 3.8 3.6 - 5.1 g/dL [facility] GLOBULIN 2.7 1.9 - 3.7 g/dL (calc) [facility] ALBUMIN/GLOBULIN RATIO 1.4 1.0 - 2.5 (calc) [facility] BILIRUBIN, TOTAL 0.5 0.2 - 1.2 mg/dL [facility] ALKALINE PHOSPHATASE 60 35 - 144 U/L [facility] AST 19 10 - 35 U/L [facility] ALT 14 9 - 46 U/L [facility] Blood BLOOD SPECIMEN / Unknown 07/23/2024 3:21 PM PROFESSOR OF BIOCHEMISTRY 07/23/2024 3:21 PM PROFESSOR OF BIOCHEMISTRY Irfaan Ahmed Abid DO CHEMISTRY Final Resul t [email or web address] [facility] [address] [place] [address], [facility] [address] [place] [address] * CT CHEST SCREENING LOW DOSE WO CONTRAST (10/09/2022 8:26 AM PROFESSOR OF BIOCHEMISTRY) Anatomical Region Laterality Modality Computed Tomogra phy Impressions 10/09/2022 11:19 AM PROFESSOR OF BIOCHEMISTRY 1. Previous sternotomy and CABG. Pacemaker with intact 2 leads. 2. Old granulomatous disease. LUNG-RADS Category 1. Negative. Calcified nodules definitely benign. Recommend continued annual screening with LD CT in 12 months. Please note that all CT scans at this facility use dose modulation, iterative reconstruction and/or weight-based dosing when appropriate to reduce radiation dose to as low as reasonably achievable. Dictated by: Farida Lombardo MD @10/09/2022 8:42:54 AM/CRL:louise Narrative 10/09/2022 11:19 AM PROFESSOR OF BIOCHEMISTRY For Patients: As a result of the Cures Act, medical imaging exams and procedure reports are released immediately into your electronic medical record. You may view this report before your referring provider. If you have questions, please contact your health care provider. CHEST SCREENING LOW DOSE WITHOUT CONTRAST INDICATION: Lung cancer screening. TECHNIQUE: CT chest without contrast. Lung cancer screening. COMPARISON: None. FINDINGS: Cardiovascular structures: Heart size is normal. Thoracic aorta and main pulmonary artery are normal in caliber. Previous sternotomy and CABG. Pacemaker with dual leads. Chronic atherosclerotic disease. Mediastinum and dorina: No sign of mass or adenopathy. Lungs: Calcified granuloma left upper lower lobes. No suspicious pulmonary nodule, mass or consolidation. The airways are clear. Pleura and pericardium: No effusions. Chest wall and axilla: No mass or adenopathy. Bones: No significant findings. Upper abdomen: Degenerative spine. No lytic or osteoblastic lesions. us Devan Cross MD CT Final Result from Last 3 Months or Most Recently Relevant to Health Maintenance Insurance [facility] MR [facility] MR MEDICARE PART A HB ONLY Advance Directives * Full Code (Latest Code Status on File) Date Activated Date Inactivated Comments 05/21/2023 10:20 PM 05/22/2023 8:20 PM Question Answer Comments Code Status Discussion: Reviewed Preferences * Full Code Date Activated Date Inactivated Comments 12/29/2022 10:41 PM 01/01/2023 4:44 PM Question Answer Comments Code Status Discussion: Reviewed Preferences * Full Code Date Activated Date Inactivated Comments 12/07/2022 9:03 AM 12/07/2022 3:37 PM Question Answer Comments Code Status Discussion: Reviewed Preferences * Full Code Date Activated Date Inactivated Comments 12/06/2022 5:59 AM 12/07/2022 9:03 AM Question Answer Comments Code Status Discussion: Unable to Assess Preferences, Provider to review later * Full Code Date Activated Date Inactivated Comments 06/13/2016 7:25 AM 06/14/2016 1:34 PM Care Teams Bacteriology Teacher Relationship Specialty Start Date End Date Devan Cross MD [address] [place] [address] PCP - General 10/10/05 Shashi Barraza MD [address] [place] [address] Surgery - Vascular 03/10/12 Jesusita Albert DO [address] [place] [address] Endocrinology 07/23/24
--- NOTE | 2024-09-15 16:54 | ED.ARRPALP ---
HPI - Arrhythmia/Palpitations General Time Seen by Provider: 16:54 Date Seen: 09/15/24 Chief Complaint: Arrhythmia/Palpitations Stated Complaint: defibrillator went off Time Seen by Provider: 09/15/24 16:54 Source: patient, RN notes reviewed and old records reviewed Mode of arrival: ambulatory Limitations: no limitations History of Present Illness HPI narrative: This 79yo male is coming into the ER after his defibrillator went off. He was just driving home, started to feel lightheaded and dizzy, pulled off to the side of the road and he felt his defibrillator [place]. There was initial discomfort with it but otherwise he was not feeling any chest pain, had no sense of arrhythmia. He has not been short of breath. His activity level has been baseline. He has never had his defibrillator go off before. He had cough and cold symptoms with upper respiratory virus a couple weeks ago but has improved. He is on Xarelto and an 81 mg aspirin. States he is on Xarelto for history of MIs. He has had reportedly 7 heart attacks before, has had his cardiac care at [facility]. He has a dual pacemaker/defibrillator in place. The defibrillator was placed 6-8 years ago per patient. This patient appears to have a history of paroxysmal atrial fibrillation in his chart. Related Data Home Medications ?Medication ?Instructions ?Recorded ?Confirmed levothyroxine 112 mcg tablet 112 mcg PO DAILY 12/29/22 08/22/23 rivaroxaban 20 mg tablet (Xarelto) 20 mg PO QPM 12/29/22 08/22/23 aspirin 81 mg tablet,delayed 81 mg PO DAILY 05/20/23 08/22/23 release (Adult Aspirin Regimen) carvedilol 25 mg tablet 25 mg PO BID 05/20/23 08/22/23 rosuvastatin 40 mg tablet 40 mg PO DAILY 05/20/23 08/22/23 acetaminophen 325 mg tablet 650 mg PO TID PRN 05/21/23 05/21/23 cholecalciferol (vitamin D3) 25 50 mcg PO DAILY 05/21/23 08/22/23 mcg (1,000 unit) tablet diphenhydramine HCl 25 mg tablet 25 mg PO QHS PRN 05/21/23 05/21/23 (Allergy Medicine) loratadine 10 mg tablet 10 mg PO DAILY PRN 05/21/23 05/21/23 (Allerclear) Previous Rx's ?Medication ?Instructions ?Recorded amoxicillin 500 mg capsule 500 mg PO TID 3 days #9 caps 08/22/23 Allergies Allergy/AdvReac Type Severity Reaction Status Date / Time No Known Drug Allergies Allergy Verified 12/29/22 18:49 Review of Systems Status of ROS: Reports: 6 or more systems reviewed and unremarkable except as noted in History and below [facility] Medical History Hypovolemic shock ?R57.1 - Hypovolemic shock (ICD-10) Chronic anticoagulation ?Z79.01 - intermodal owner operator truck driver (current) use of anticoagulants (ICD-10) ICD (implantable cardioverter-defibrillator) in place ?Z95.810 - Presence of automatic (implantable) cardiac defibrillator (ICD-10) History of right common carotid artery stent placement ?Z98.890 - Other specified postprocedural states (ICD-10) ?Z95.828 - Presence of other vascular implants and grafts (ICD-10) COVID-19 ?U07.1 - COVID-19 (ICD-10) Chronic cough ?R05.3 - Chronic cough (ICD-10) Osteoporosis ?M81.0 - Age-related osteoporosis without current pathological fracture (ICD-10) NSTEMI (non-ST elevation myocardial infarction) ?I21.4 - Non-ST elevation (NSTEMI) myocardial infarction (ICD-10) Carotid atherosclerosis ?I65.29 - Occlusion and stenosis of unspecified carotid artery (ICD-10) Myocardial infarction of anterior wall ?I21.09 - ST elevation (STEMI) myocardial infarction involving other coronary artery of anterior wall (ICD-10) Chronic HFrEF (heart failure with reduced ejection fraction) ?I50.22 - Chronic systolic (congestive) heart failure (ICD-10) Primary hypothyroidism ?E03.9 - Hypothyroidism, unspecified (ICD-10) Spinal stenosis, lumbar ?M48.061 - Spinal stenosis, lumbar region without neurogenic claudication (ICD-10) Essential hypertension ?I10 - Essential (primary) hypertension (ICD-10) PVD (peripheral vascular disease) ?I73.9 - Peripheral vascular disease, unspecified (ICD-10) Paroxysmal atrial fibrillation ?I48.0 - Paroxysmal atrial fibrillation (ICD-10) Mixed hyperlipidemia ?E78.2 - Mixed hyperlipidemia (ICD-10) Coronary artery disease ?I25.10 - Atherosclerotic heart disease of [place] coronary artery without angina pectoris (ICD-10) History of anemia ?Z86.2 - Personal history of diseases of the blood and blood-forming organs and certain disorders involving the immune mechanism (ICD-10) AVM (arteriovenous malformation) of colon with hemorrhage ?K55.21 - Angiodysplasia of colon with hemorrhage (ICD-10) History of gastrointestinal hemorrhage ?Z87.19 - Personal history of other diseases of the digestive system (ICD-10) Alcohol use disorder ?F10.90 - Alcohol use, unspecified, uncomplicated (ICD-10) Tobacco dependence with current use ?F17.200 - Nicotine dependence, unspecified, uncomplicated (ICD-10) Surgical History H/O varicose vein stripping ?Z98.890 - Other specified postprocedural states (ICD-10) Status post lumbar laminectomy ?Z98.890 - Other specified postprocedural states (ICD-10) H/O hernia repair ?Z98.890 - Other specified postprocedural states (ICD-10) ?Z87.19 - Personal history of other diseases of the digestive system (ICD-10) History of coronary artery stent placement ?Z95.5 - Presence of coronary angioplasty implant and graft (ICD-10) S/P CABG x 3 ?Z95.1 - Presence of aortocoronary bypass graft (ICD-10) Family History Brother Heart disease Social History Narrative: . Lives with . Still working in industrial manufacturing. Continues to smoke 1 pack cigarettes daily, with greater than 50 pack-year history of smoking. Drinks minimum of 2 alcoholic beverages in the evening on a daily basis. Denies alcohol withdrawal. Designates as power of mergers and acquisitions attorney for health should that be required. Requests full resuscitation in the event of cardiopulmonary demise. Primary care physician is Dr. Cross. What is your current living situation?: I presently have a place to live Problems where you live: no known problems Problems where you live details: None In the past 12 months, utilities in danger of being shut off: no In past 12 months, lack of transportation kept you from medical appts, meetings, work, or getting things needed for daily living: no In the past 12 mos, have been you worried that your food would run out before you had money to buy more?: never true In the past 12 mos, the food you bought just didn't last and you didn't have money to buy more?: never true Highest level of school completed/degree received: Associate degree: occupational, technical, vocational program Smoking Status: Current every day smoker What tobacco products do you use: cigarettes Smoking packs per day: 1 Smoking cigarettes per day: 20.0 How often do you have a drink containing alcohol: 4 or more times a week Alcohol type: beer How many standard drinks containing alcohol do you have on a typical day: 3 or 4 How often do you have six or more drinks on one occasion: Less than monthly AUDIT-C Alcohol total score: 6 Non-prescribed substance use: denies use Caffeine: No How often does anyone, including family, friends and others, physically hurt you: never How often does anyone, including family, friends and others, insult or talk down to you: never How often does anyone, including family, friends and others, threaten you with harm: never How often does anyone, including family, friends and others, scream or curse at you: never Exam Const: Vital Signs, click to edit/add: Vital Signs - 24 hr 09/15/24 16:48 09/15/24 17:04 Temperature 97.7 F Pulse Rate [Pulse Oximeter] 68 Respiratory Rate 16 Blood Pressure [Ri ght Upper Arm] 176/100 H Pulse Oximetry 98 98 Oxygen Delivery Me thod Room Air Ligia is a 79-year-old male that is alert, interactive, no apparent distress. He is ambulatory in the ED of his own accord. Sclera clear, symmetric facial function, speech normal. Neck is supple, do not appreciate jugular venous distension. Lungs are clear, good air entry, no wheezing crackles. CV regular, no significant murmur, normal S1-S2, no S3-S4. Abdomen is soft, nontender, nondistended, no organomegaly. He has no lower extremity edema. Documenting provider has reviewed patient's vital signs: yes Course Course ED Course: Will talk to Cardiology, get EKG, portable chest x-ray and labs including troponin I. Right now he has no pain, is asymptomatic. He is not even really feeling any discomfort from the shock. I do not have a way to interrogate his device here and will definitely need to talk to Cardiology. Reevaluation(s) Time of Reevaluation #1: 18:14 Reevaluation #1: Have reviewed with patient the plan that I discussed with Cardiology and was recommended by them. He is agreeable to this. When I was talking to him, did see a PVC and then shortly after that a couplet of PVCs. We have not seen any subsequent ventricular tachycardia or ventricular fibrillation. He has no chest pain at this time. Reviewed with him that I am talking to the hospitalist and need to get final acceptance from her. Consultations Consultation #1: Spoke with cardiology on-call from [facility]. We reviewed patient's current history, appears that last ECHO is likely from 2022. He believes that this patient should be followed and troponins trended; they may very well be elevated due to shock but if continuing to rise, further issues clinically with rhythm or patient symptoms, he would consider further inpatient ischemic work up. We should update ECHO, follow monitoring and troponins. We unfortunately cannot interrogate device but this could be done outpatient in near future if work up stable here. There are no cardiology beds within the [facility] system at this time anyway. (?Dr. Brody) Time: 17:58 Consultation #2: Have spoken to the hospitalist Dr. Cadena. She would like to talk to Dr. Christine regarding this patient first. Did review that there is no capacity at other facilities at this time, this patient will need to declare himself emergent before any cardiac acceptance at other institutions. We had recently called other organizations for med surg capacity for a different patient. Time: 18:09 Consultation #3: [place] has had a bed open up with Cardiology, patient is willing to go there. Our hospitalist would prefer transfer and will do so. Have spoken with Dr. Fragoso at [facility], accepts this patient. Once nursing staff has gotten phone call for report, will send him via ambulance for transfer. Time: 18:57 Vital Signs Vital signs: Initial Vital Signs Temperature 97.7 F 09/15/24 16:48 Temperature Source Temporal Artery Scan 09/15/24 16:48 Pulse Rate 68 09/15/24 16:48 Pulse Rhythm Irregular 09/15/24 16:48 Respiratory Rate 16 09/15/24 16:48 Blood Pressure 176/100 H 09/15/24 16:48 Blood Pressure Mean 125 H 09/15/24 16:48 Blood Pressure Position Sitting 09/15/24 16:48 Pulse Oximetry 98 09/15/24 16:48 Oxygen Delivery Method Room Air 09/15/24 16:48 Vital Signs Temperature 97.7 F 09/15/24 16:48 Pulse Rate 68 09/15/24 16:48 Respiratory Rate 16 09/15/24 16:48 Blood Pressure 176/100 H 09/15/24 16:48 Pulse Oximetry 98 09/15/24 16:48 Oxygen Delivery Method Room Air 09/15/24 16:48 Temperature 97.7 F 09/15/24 16:48 Pulse Rate 68 09/15/24 16:48 Respiratory Rate 16 09/15/24 16:48 Blood Pressure 176/100 H 09/15/24 16:48 Pulse Oximetry 98 09/15/24 17:04 Oxygen Delivery Method Room Air 09/15/24 16:48 MDM - Arrhythmia/Palpitations Lab Data Attestation: I reviewed the patient's lab results. Labs: Lab Results 09/15/24 Range/Units 17:15 WBC 6.93 (4.50-11.00) K/uL RBC 4.72 (4.30-5.90) m/uL Hgb 13.9 (13.5-17.5) gm/dL Hct 42.0 (37.0-53.0) % MCV 89 (80-100) fL MCH 29 (26-34) pg MCHC 33 (32-36) gm/dL RDW Coeff of Hannah 13.8 (11.5-15.5) % Plt Count 171 (140-440) K/uL Neut % (Auto) 67.2 (42.0-72.0) % Lymph % (Auto) 23.4 (20-44) % [place] % (Auto) 7.2 (0.0-11.0) % Eos % (Auto) 1.7 (0.0-7.0) % Baso % (Auto) 0.4 (0.0-3.0) % Neut # (Auto) 4.65 (1.7-7.0) K/uL Lymph # (Auto) 1.62 (0.90-2.90) K/uL [place] # (Auto) 0.50 (0.00-0.90) K/UL Eos # (Auto) 0.12 (0.00-0.50) K/uL Baso # (Auto) 0.03 (0.00-0.30) K/uL Abs Immat Gran (auto) 0.01 (0.00-0.30) K/uL Imm/Tot Granulo (auto) 0.1 % Sodium 136 (135-149) mmol/L Potassium 3.9 (3.6-5.1) mmol/L Chloride 102 (96-114) mmol/L Carbon Dioxide 29 (20-32) mmol/L Anion Gap 5 L (7-15) mEq/L BUN 15 (7-30) mg/dL Creatinine 0.6 (0.5-1.5) mg/dL Estimated Creat Clear 58.59 Estimated GFR 99 ml/min Glucose 128 H (60-115) mg/dL Calcium 9.1 (8.4-10.6) mg/dL Magnesium 1.9 (1.5-2.6) mg/dL Total Bilirubin 0.6 (0.1-1.5) mg/dL AST 40 H (12-35) U/L ALT 37 (4-50) U/L Alkaline Phosphatase 77 (40-150) U/L Troponin I 0.05 H (0.01-0.04) ng/mL NT-Pro-B Natriuret Pep 3620 pg/mL Total Protein 7.2 (6.0-8.3) g/dL Albumin 4.1 (3.3-5.0) g/dL Imaging Data Chest x-ray: Attestation: I have reviewed the pertinent imaging results. My impression: Device seen, no evidence of any active infiltrate or congestive heart failure on my preliminary review. Did compared to portable chest x-ray from 2016. Radiologist's impression: Patient: LIGIA MAY Facility:?[facility] Patient ID:?[id number] Site Patient ID:?[id number]. Site :?[id number] Study:?XRay-Chest 1 VIEW PORTABLE-09/15/2024 5:18:19 PM Ordering Physician:Consuelo Hanson Final Report: INDICATION: : recent cough/cold, defib went off COMPARISON: None TECHNIQUE: One view(s) of the chest FINDINGS: Left chest wall dual lead ICD. The heart is normal in size. Likely postsurgical changes of CABG. There is no focal airspace consolidation, pleural effusion, or pneumothorax. No displaced fractures. Status post median sternotomy. IMPRESSION: No acute cardiopulmonary process. Dictated by Jan Ledezma MD @ 09/15/2024 5:28:06 PM (Electronic Signature) ECG Data Attestation: I personally reviewed and interpreted this ECG as follows: (Sinus rhythm, 71 beats per minute. QRS widened, PVCs seen. Right bundle branch block. Compared to his EKG from May 2023.) ECG interpretation date: 09/15/24 ECG interpretation time: 17:02 Prior ECG tracings: available for review (May 2023 had LVH with strain pattern, similar appearance to todays EKG) Discharge Plan Discharge Clinical Impression: ICD (implantable cardioverter-defibrillator) discharge Patient Disposition: [facility] Discharge Location: [facility]
--- NOTE | 2024-09-15 17:04 | CRLHL7_ITS ---
For Patients: As a result of the Cures Act, medical imaging exams and procedure reports are released immediately into your electronic medical record. You may view this report before your referring provider. If you have questions, please contact your health care provider. INDICATION: : recent cough/cold, defib went off COMPARISON: None TECHNIQUE: One view(s) of the chest FINDINGS: Left chest wall dual lead ICD. The heart is normal in size. Likely postsurgical changes of CABG. There is no focal airspace consolidation, pleural effusion, or pneumothorax. No displaced fractures. Status post median sternotomy. IMPRESSION: No acute cardiopulmonary process. Dictated by Jan Ledezma MD @ 09/15/2024 5:28:06 PM (Electronically Signed)
[2024-09-15 17:26] LABS: Basophils Absolute Auto 0.03 K/uL (0.00-0.30); Basophils Percent Auto 0.4 % (0.0-3.0); Eosinophils Absolute Auto 0.12 K/uL (0.00-0.50); Eosinophils Percent Auto 1.7 % (0.0-7.0); Hemoglobin* 13.9 gm/dL (13.5-17.5); Immature Granulocytes Abs Auto 0.01 K/uL (0.00-0.30); Immature Granulocytes Pct Auto 0.1 %; Lymphocytes Absolute Auto 1.62 K/uL (0.90-2.90); Lymphocytes Percent Auto 23.4 % (20-44); Mean Corpuscular HGB Conc 33 gm/dL (32-36); Mean Corpuscular Hemoglobin 29 pg (26-34); Mean Corpuscular Volume 89 fL (80-100); Monocytes Percent Auto 7.2 % (0.0-11.0); Neutrophils Absolute Auto 4.65 K/uL (1.7-7.0); Neutrophils Percent Auto 67.2 % (42.0-72.0); Platelet Count* 171 K/uL (140-440); RDW Coefficient of Variation % 13.8 % (11.5-15.5); Red Blood Count 4.72 m/uL (4.30-5.90); White Blood Count* 6.93 K/uL (4.50-11.00)
[2024-09-15 17:27] LABS: Slide Review Reflex No
[2024-09-15 17:42] LABS: Albumin* 4.1 g/dL (3.3-5.0); Chloride* 102 mmol/L (96-114); Sodium* 136 mmol/L (135-149)
[2024-09-15 17:43] LABS: Potassium* 3.9 mmol/L (3.6-5.1)
[2024-09-15 17:45] LABS: Alanine Aminotransferase* 37 U/L (4-50); Alkaline Phosphatase* 77 U/L (40-150); Anion Gap 5 mEq/L (7-15); Aspartate Amino Transferase* 40 U/L (12-35); Bilirubin Total* 0.6 mg/dL (0.1-1.5); Blood Urea Nitrogen* 15 mg/dL (7-30); Carbon Dioxide* 29 mmol/L (20-32); Creatinine* 0.6 mg/dL (0.5-1.5); Est. Creatinine Clearance* 58.59; Estimated Glomerular Filt Rate 99 ml/min; Glucose* 128 mg/dL (60-115); Total Protein* 7.2 g/dL (6.0-8.3)
[2024-09-15 17:46] LABS: Calcium* 9.1 mg/dL (8.4-10.6); Magnesium* 1.9 mg/dL (1.5-2.6)
[2024-09-15 17:57] LABS: Troponin I* 0.05 ng/mL (0.01-0.04)
--- OUTSIDE RECORDS SUMMARY | 2024-09-15 17:59 | XMS_ITS | Clinical Summary ---
Author Organization [facility] Address [place], [place] [address] Care Team Providers Care Library Information Technician Name Role Phone Devan Cross MD Primary Care Provider Shashi Barraza MD Unavailable Unavailabl e Jesusita Albert DO Unavailable [phone] Allergies Active Allergy Reactions Criticality Noted Date [...] Coronary atherosclerosis of unspecified type of vessel, tonto apache or graft 11/10/2007 Overview (11/10/2007): - s/p [...] into aorta during emergency coronary angiography in [place] 11/2007. The aortagram from 11/07/2007 show significant restenosis in both common iliacs left>right but his KRANTHI's today are 0.77 right and 0.68 left with biphasic flow in the CONTACT AGENT's. - flouro'ed the stents 8 mm stent [...] Department Care Team Description 09/15/2024 Nurse Triage [facility] [address] [place] [address] Devan Cross MD Defibrillator Problem 07/29/2024 1:02 PM PLASTIC TUBING INSULATION SUPERVISOR - 07/29/2024 11:59 PM PLASTIC TUBING INSULATION SUPERVISOR Hospital Encounter [facility] [address] [place] [address] Osteoporosis, unspecified osteoporosis type, unspecified pathological fracture presence (Primary Dx) 07/29/2024 Travel 07/29/2024 Refill [facility] [address] [place] [address] Devan Cross MD Refill Request (Xarelto) 07/26/2024 Telephone [facility] [address] [place] [address] Olga Ludwig, SOCIAL INSURANCE ADVISER Appointment 07/26/[address] [facility] [address] [facility] [address] [facility] [address] [place] [address] Jesusita Albert, DO Results 07/23/2024 3:05 PM PLASTIC TUBING INSULATION SUPERVISOR Office Visit [facility] [address] [facility] [address] [facility] [address] [place] [address] Jesusita Albert, DO Follow Up (Osteoporosis) 07/23/2024 [...] 0.6 oz pu re alcohol) 2 beers/day [facility] Utilities Answer Date Recorded Do you have [...] on file Legal Sex Male 6:09 AM PLASTIC TUBING INSULATION SUPERVISOR Gender Identity Not on file Sexual Orientation Not on file Obstetrics History Last Filed Vital Signs Vital Sign Reading Time Taken Comments Blood Pressure 124/76 07/29/2024 1:04 PM PLASTIC TUBING INSULATION SUPERVISOR Pulse 60 07/29/2024 1:04 PM PLASTIC TUBING INSULATION SUPERVISOR Temperature 36.6 C (97.9 F) 07/28/2023 2:30 PM PLASTIC TUBING INSULATION SUPERVISOR Respiratory Rate 18 07/28/2023 2:30 PM PLASTIC TUBING INSULATION SUPERVISOR Oxygen Saturation 96% 07/29/2024 1:04 PM PLASTIC TUBING INSULATION SUPERVISOR Inhaled Oxygen Concentration - - Weight 70.3 kg (155 lb) 07/23/2024 2:37 PM PLASTIC TUBING INSULATION SUPERVISOR Height 175.3 cm (5' 9) 02/10/2024 3:00 PM CDT Body Mass Index 22.89 02/10/2024 3:00 PM CDT Plan of Treatment Upcoming Encounters Date Type Department Care Team (Late st Contact Info) Description 10/14/2024 Cardiac Device Check [facility] [phone] 07/25/2025 11:20 AM PLASTIC TUBING INSULATION SUPERVISOR Office Visit [facility] [address] [place] [address] Jesusita Albert DO [address] [place] [address] Health Maintenance Due Date Last Done Comments [...] 04/07/2018, 03/23/2012 Medical Devices Implanted Type Area Processing Associate Device Identifier Shelf Expiration Date Model / Serial / Lot Graft Woven 16x8mm Bif Hemashield [id number] - [id number] Implanted:Qty: 1 on 03/20/[address] [facility] [employer] [id number] / / [id number] Dual Chamber Icd Implanted: 016 by Ricky Haong MD (Quantity not on file) ICD Only Medtronic EVERA XT DF4 [id number] / [id number] / Description: Procedures Procedure Name Priority Date/Time Associated Diagnosis Comments T4,FREE Routine 07/23/2024 3:21 PM PLASTIC TUBING INSULATION SUPERVISOR COMP METABOLIC PANEL Routine 07/23/2024 3:21 PM PLASTIC TUBING INSULATION SUPERVISOR Age-related osteoporosis without current pathological fracture VITAMIN D 25 (DEFICIENCY) Routine 07/23/2024 3:21 PM PLASTIC TUBING INSULATION SUPERVISOR Age-related osteoporosis without current pathological fracture TSH WITH REFLEX Routine 07/23/2024 3:21 PM PLASTIC TUBING INSULATION SUPERVISOR Hypothyroidism, unspecified type CT CHEST SCREENING LOW DOSE WO CONTRAST Routine 10/09/2022 8:26 AM PLASTIC TUBING INSULATION SUPERVISOR Personal history of nicotine dependence from Last 3 Months or Most Recently Relevant to Health Maintenance Results * (ABNORMAL) TSH WITH REFLEX (07/23/2024 3:21 PM PLASTIC TUBING INSULATION SUPERVISOR) TSH W/REFLEX TO FT4 5.13(H) 0.40 - 4.50 mIU/L [facility] Blood BLOOD SPECIMEN / Unknown 07/23/2024 3:21 PM PLASTIC TUBING INSULATION SUPERVISOR 07/23/2024 3:21 PM PLASTIC TUBING INSULATION SUPERVISOR us Irfaan Ahmed Abid DO CHEMISTRY Final Resul t [employer] [facility] [address] [place] [address], [facility] [address] [place] [address] * VITAMIN D 25 (DEFICIENCY) (07/23/2024 3:21 PM PLASTIC TUBING INSULATION SUPERVISOR) VITAMIN D,25-OH,TOTAL,IA 31 30 - 100 ng/mL [...] D, (D2,D3), LC/MS/MS is recommended: order code 30750 (patients >2yrs). See Note 1 Note 1 For additional information, please refer to http://education.Ecorithm/faq/IVR115 (This link is being provided for informational/ educational purposes only.) Blood BLOOD SPECIMEN / Unknown 07/23/2024 3:21 PM PLASTIC TUBING INSULATION SUPERVISOR 07/23/2024 3:21 PM PLASTIC TUBING INSULATION SUPERVISOR Jesusita Wattjoellen Albert DO SEND OUTS Final Resul t [employer] [facility] [address] [place] [address], [place] [phone] [employer] [address] [place] [address] * T4,FREE (07/23/2024 3:21 PM PLASTIC TUBING INSULATION SUPERVISOR) T4, FREE 1.2 0.8 - 1.8 ng/dL [employer] [facility]illo 07/23/2024 3:21 PM PLASTIC TUBING INSULATION SUPERVISOR 07/23/2024 3:21 PM PLASTIC TUBING INSULATION SUPERVISOR [facility] Wattjoellen Albert DO CHEMISTRY Final Resul t Performing Organization Address City/[facility] Co de Phone Number [employer] [facility] [address] [place] [phone], [employer] [facility] [address] [place] [address] * COMP METABOLIC PANEL (07/23/2024 3:21 PM PLASTIC TUBING INSULATION SUPERVISOR) GLUCOSE 88 65 - 99 mg/dL [facility] Comment: Fasting reference interval UREA [...] BLOOD SPECIMEN / Unknown 07/23/2024 3:21 PM PLASTIC TUBING INSULATION SUPERVISOR 07/23/2024 3:21 PM PLASTIC TUBING INSULATION SUPERVISOR Irfaan Ahmed Abid DO CHEMISTRY Final Resul t [employer] [facility] [address] [place] [address], [employer] [facility] [address] [place] [address] * CT CHEST SCREENING LOW DOSE WO CONTRAST (10/09/2022 8:26 AM PLASTIC TUBING INSULATION SUPERVISOR) Anatomical Region Laterality Modality Computed Tomogra phy Impressions 10/09/2022 11:19 AM PLASTIC TUBING INSULATION SUPERVISOR 1. Previous sternotomy and CABG. Pacemaker with [...] @10/09/2022 8:42:54 AM/CRL:louise Narrative 10/09/2022 11:19 AM PLASTIC TUBING INSULATION SUPERVISOR For Patients: As a result of the [...] Most Recently Relevant to Health Maintenance Insurance [facility] MEDICARE PART A HB ONLY Advance [...] 7:25 AM 06/14/2016 1:34 PM Care Teams Library Information Technician Relationship Specialty Start Date End Date Devan Cross MD [address] [place] [address] PCP - General 10/10/05 Shashi Barraza MD [address] [place] [address] Surgery - Vascular 03/10/12 Jesusita Albert DO [address] [place] [address] Endocrinology 07/23/24
[2024-09-15 18:00] LABS: NT Pro B Type NatriureticPept* 3620 pg/mL
== END 2024-09-15 23:11 | disposition short-term general hospital (02) ==
PROVIDERS: Emergency Provider Family Medicine; PCP Family Medicine
DX: T82.198A Other mechanical complication of other cardiac electronic device, initial encounter (principal); R00.2 Palpitations; Y71.8 Miscellaneous cardiovascular devices associated with adverse incidents, not elsewhere classified
CPT/HCPCS: 36415; 71045; 80053; 83735; 83880; 84484; 85025; 93005; 94761; 99284; 99285

== ENCOUNTER 2024-09-15 23:10 | Outpatient (CLI) | payer MEDICARE, SELFPAY | END 2024-09-15 23:11 | disposition home or self-care (01) | LOC: AMB 10-02 04:35 | PROVIDERS: PCP Family Medicine; Visit Provider Family Medicine | DX: R57.1 Hypovolemic shock (principal); R42 Dizziness and giddiness; Z45.02 Encounter for adjustment and management of automatic implantable cardiac defibrillator | CPT/HCPCS: A0425; A0427 ==